=== PATIENT | male | born 1935 | race Caucasian/White ===

== ENCOUNTER → 2020-04-03 14:56 | Outpatient (REF) | payer MEDICARE, SELFPAY | LOC: ANHLAB 14:56 | PROVIDERS: PCP Internal Medicine; Visit Provider Nurse Practitioner | DX: C44.319 Basal cell carcinoma of skin of other parts of face (principal) | CPT/HCPCS: 88305 ==

== ENCOUNTER → 2020-04-30 10:35 | Outpatient (REF) | payer MEDICARE, SELFPAY | LOC: ANHLAB 10:35 | PROVIDERS: PCP Internal Medicine; Visit Provider Nurse Practitioner | DX: C44.319 Basal cell carcinoma of skin of other parts of face (principal) | CPT/HCPCS: 88305; 88331 ==

== ENCOUNTER → 2020-06-26 11:34 | Outpatient (REF) | payer MEDICARE, SELFPAY | LOC: ANHLAB 11:34 | PROVIDERS: PCP Internal Medicine; Visit Provider Nurse Practitioner | DX: L85.9 Epidermal thickening, unspecified (principal) | CPT/HCPCS: 88305; 88312; 88313; 88342 ==

== ENCOUNTER → 2021-03-19 07:44 | Outpatient (CLI) | payer MEDICARE, SELFPAY ==
--- NOTE | ~2021-03-19 | XR_ITS ---
EXAMINATION: XR lumbar spine 2-3V DATE: 03/19/2021 08:20 INDICATION: Low back pain TECHNIQUE: Anteroposterior and lateral views of the lumbar spine, and cone-down lateral view of the l umbosacral junction were obtained. COMPARISON: 02/23/2015 FINDINGS: There are 3 mm of anterolisthesis of L3 on L4 and 6 mm of anterolisthesis of L4 on L5. Ther e is severe loss of intervertebral disc space height at L5-S1. The vertebral body heights are normal. No fracture is identified. 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 IMPRESSION: 1. Moderate to severe lumbar spondylosis without acute findings or significant interval change. Reviewed, dictated and finalized at location A.
== END ==
PROVIDERS: PCP Internal Medicine; Visit Provider Internal Medicine
DX: G89.29 Other chronic pain (principal); M54.5 Low back pain; M47.816 Spondylosis without myelopathy or radiculopathy, lumbar region
CPT/HCPCS: 72100

== ENCOUNTER → 2021-07-09 09:42 | Outpatient (CLI) | payer MEDICARE, SELFPAY ==
--- NOTE | ~2021-07-09 | XR_ITS ---
EXAMINATION: XR chest 2V EXAM DATE: 07/09/2021 10:10 INDICATION: R06.02 - Shortness of breath . Symptoms one month. TECHNIQUE: Portable AP frontal chest x-ray was obtained. Comparison is made to prior examination from 05/29/2011. FINDINGS: Moderately abnormal reticulation throughout the lungs, much more pronounced than on previou s examination. There is cardiomegaly, unchanged. Suspect that there is most likely a chronic componen t of interstitial lung disease. Can't exclude pulmonary edema. No confluent consolidation, pneumothor ax or pleural effusion suspected. There are bony degenerative changes. IMPRESSION: 1. Diffuse abnormal reticulation, likely some amount of chronic interstitial lung disease. Superimpo sed edema not excludable. 2. Cardiomegaly. Reviewed, dictated and finalized at location A. ATION TENDER HELPER IMPRESSION: 1. Diffuse abnormal reticulation, likely some amount of chronic interstitial l mingo disease. Superimposed edema not excludable. 2. Cardiomegaly.
== END ==
PROVIDERS: PCP Internal Medicine; Visit Provider Internal Medicine
DX: R06.02 Shortness of breath (principal); I51.7 Cardiomegaly
CPT/HCPCS: 71046

== ENCOUNTER 2022-06-24 07:00 | Outpatient (NON) | payer MEDICARE, SELFPAY | END 2022-06-24 07:01 | disposition home or self-care (01) | PROVIDERS: PCP Internal Medicine; Visit Provider Nurse Practitioner | DX: C44.319 Basal cell carcinoma of skin of other parts of face (principal); L57.0 Actinic keratosis | CPT/HCPCS: 88305 ==

== ENCOUNTER 2022-08-25 13:32 | Outpatient (NON) | payer MEDICARE, SELFPAY | END 2022-08-25 13:33 | disposition home or self-care (01) | LOC: ANHLAB 13:33 | PROVIDERS: PCP Internal Medicine; Visit Provider Nurse Practitioner | DX: C44.319 Basal cell carcinoma of skin of other parts of face (principal) | CPT/HCPCS: 88305; 88331 ==

== ENCOUNTER 2022-08-28 09:44 | Observation (INO) | payer MEDICARE, SELFPAY ==
[2022-08-28] VITALS (27 sets, daily range): BP systolic 131–180; BP diastolic 80–161; PULSE 70–94; RESP 15–26; TEMP 36.3–36.7; O2SAT 92–100
--- NOTE | ~2022-08-28 | US_ITS ---
EXAMINATION: US carotid duplex BI DATE: 08/28/2022 17:02 INDICATION: Transient ischemic episode TECHNIQUE: Grayscale, color Doppler, and pulsed Doppler images of the cervical carotid arteries were obtained. The degree of vessel stenosis is placed in one of the following categories: normal, <50%, 5 0-69%, >=70% but less than near-occlusion, near-occlusion, or total occlusion. Note that percent sten osis relative to normal distal artery lumen diameter is indirectly measured from velocity measurement s as described by Kennedy, et al. Radiology 2003; 229:340-346. COMPARISON: None. FINDINGS: RIGHT: The right common carotid artery (CCA) peak systolic velocity (PSV) is 49 cm/s. The right internal car otid artery (ICA) PSV is 37 cm/s. The right ICA end-diastolic velocity (EDV) is 15 cm/s. The right IC A/CCA PSV ratio is 0.7. Grayscale and color Doppler images yield an estimate of <50% diameter reducti on from plaque in the ICA. The external carotid artery (ECA) PSV is 44 cm/s. There is antegrade flow in the right vertebral artery. LEFT: The left CCA PSV is 41 cm/s. The left ICA PSV is 32 cm/s. The left ICA EDV is 13 cm/s. The left ICA/C CA PSV ratio is 0.8. Grayscale and color Doppler images yield an estimate of <50% diameter reduction from plaque in the ICA. The ECA PSV is 18 cm/s. There is antegrade flow in the left vertebral artery. IMPRESSION: 1. <50% stenosis in the right internal carotid artery. 2. <50% stenosis in the left internal carotid artery. Reviewed, dictated and finalized at location A. ERY SHOPPER
--- NOTE | ~2022-08-28 | MR_ITS ---
EXAMINATION: MR brain/brain stem wo/w con DATE: 08/28/2022 15:41 INDICATION: Transient ischemic episode with slurred speech TECHNIQUE: Magnetic resonance imaging (MRI) of the brain and brainstem was performed without and with 19 mL Multihance intravenous contrast. Sequences included sagittal and axial T1-weighted SE, axial d iffusion-weighted FS SE, axial T2*-weighted GRE, axial 3D SWAN, axial T2-weighted FLAIR, and axial T2 -weighted FSE. Postcontrast axial and coronal T1-weighted SE was obtained. Apparent diffusion coeffic ient (ADC) maps were created. COMPARISON: Head CT dated 08/28/2022 FINDINGS: There are no areas of restricted diffusion to suggest acute infarction. No intracranial hemorrhage or abnormal intracranial mass lesion. There are a few scattered areas of nonspecific increased T2-weigh cayla signal intensity in the cerebral and pontine white matter which is within normal limits for age. There are no intraparenchymal signal abnormalities seen on the other pulse sequences. Symmetric promi nence of the sulci consistent with mild age-appropriate diffuse cerebral volume loss. The ventricles are symmetric and normal in size. 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 There are n o other abnormal extra-axial fluid collections. Flow voids are seen in the cerebral arteries on the T 2-weighted sequences consistent with their expected patency. Visualized orbits and soft tissues are u nremarkable. There are no areas of abnormal enhancement on the post contrast images. No mucosal thick ening in the bilateral ethmoid sinuses. IMPRESSION: 1. Normal aging brain. No acute intracranial process. Reviewed, dictated and finalized at location A. CS INSTRUCTOR
--- NOTE | ~2022-08-28 | CT_ITS ---
EXAMINATION: CT brain wo con DATE: 08/28/2022 09:53 INDICATION: Stroke. Transient ischemic episode. TECHNIQUE: Computed tomography (CT) of the head was performed without intravenous contrast. Sagittal and coronal reconstructions were performed. The mA was adjusted according to patient size. Iterative reconstruction technique was employed. The dose-length product was 605.33 mGy-cm. COMPARISON: None FINDINGS: No acute intracranial hemorrhage or acute infarction. Incidental small posterior fossa arachnoid cyst exerting mild mass effect upon the medial side of the right cerebellar hemisphere. No other abnormal extra-axial fluid collections. There is mild scattered white matter hypoattenuation consistent with chronic small vessel ischemic disease. Symmetric prominence of the sulci and ventricles consistent wi th mild to moderate age-appropriate diffuse cerebral volume loss. Ventricles are normal and symmetric . No mass/mass effect. Changes of bilateral intraocular lens replacement. The orbits, paranasal sinus es and mastoid air cells are normal. Intracranial calcified cerebral atherosclerosis is noted. IMPRESSION: 1. Normal aging brain. No acute intracranial process. Reviewed, dictated and finalized at location A. SION OPERATOR
--- NOTE | 2022-08-28 09:50 | ECG_ITS ---
Measurements Intervals [place] Rate: 84 P: 53 CT: 254 QRS: -86 QRSD: 142 T: -22 QT: 389 QTc: 461 Interpretive Statements SINUS RHYTHM WITH FIRST DEGREE AV BLOCK RIGHT BUNDLE BRANCH BLOCK LEFT ANTERIOR FASCICULAR BLOCK BASELINE ARTIFACT- I, II, AVR ABNORMAL ECG NO PREVIOUS ECG AVAILABLE FOR COMPARISON Electronically Signed On 08-28-2022 12:51:40 KETTLE SKIMMER by Simeon Carter D.O.
--- NOTE | 2022-08-28 09:56 | ED.GENADULT ---
HPI - General Adult General Chief complaint: Neuro Symptoms/Deficit Stated complaint: trouble speaking x 1 min Time Seen by Provider: 08/28/22 09:48 History of Present Illness HPI narrative: 87-year-old male presenting to the emergency department for evaluation of difficulty speaking and word finding difficulty for approximately 1 minute. This occurred approximately 30 minutes prior to arrival. When patient woke up this morning he states he was at his baseline but this episode started approximately 30 minutes ago and has since resolved. Patient denies any difficulty with word finding at this point. Patient denies any associated numbness or weakness. Patient states he has had intermittent headache over the course of the last month. Patient does have a history of high cholesterol, type 2 diabetes, basal cell carcinoma. Patient denies any prior history of VA or CVA. Related Data Home Medications Medication Instructions Recorded Confirmed cholecalciferol (vitamin D3) 50 50 mcg PO DAILY 03/05/20 08/28/22 mcg (2,000 unit) capsule acetaminophen 325 mg tablet 325 mg PO Q6H PRN Pain 07/08/21 08/28/22 (Tylenol) losartan 50 mg tablet 25 mg PO DAILY 08/28/22 08/28/22 sertraline 50 mg tablet 50 mg PO DAILY 08/28/22 08/28/22 tramadol 50 mg tablet 25 mg PO Q12H 08/28/22 08/28/22 Allergies Allergy/AdvReac Type Severity Reaction Status Date / Time No Known Allergies Allergy Verified 06/11/22 09:29 Review of Systems Review of Systems: CONSTITUTIONAL: Denies fever, chills, or sweats. EYES: Denies visual changes, redness, or discharge. ENT: Denies rhinorrhea, congestion, sore throat, or otalgia. CARDIOVASCULAR: Denies chest pain, palpitations, or edema. RESPIRATORY: Denies cough or dyspnea. GASTROINTESTINAL: Denies abdominal pain, nausea, vomiting, or diarrhea. GENITOURINARY: Denies dysuria or hematuria. SKIN: Denies rash or itching. MUSCULOSKELETAL: Denies back pain, joint pain, or myalgia. NEUROLOGIC: See HPI [facility] Past Medical History Medical History (Updated 08/28/22 @ 14:14 by Melvina Vincent PA-C) Actinic keratosis Anxiety Basal cell carcinoma Essential (primary) hypertension Gastroesophageal reflux disease Mixed hyperlipidemia Stage 4 chronic kidney disease Type 2 diabetes mellitus Surgical History Surgical History (Updated 08/28/22 @ 13:45 by Melvina Vincent PA-C) History of basal cell carcinoma excision History of laparoscopic cholecystectomy (03/05/00) History of lumbar laminectomy for spinal cord decompression Family History Family History Father Family history of pancreatic cancer Sibling Family history of diabetes mellitus in first degree relative Family history of pancreatic cancer Social History Social History (Updated 08/28/22 @ 13:58 by Melvina Vincent PA-C) Social History: Surrogate medical decision maker: Naheed Green, spouse. Code status: Full code. Smoking status: Never smoker Second hand tobacco smoke exposure: No Alcohol intake: never Substance use: never Substance use type: does not use Lack of Transportation: No Lack of Food: Never True Current Housing: I Have Housing Concerned About Future Housing: No Difficulty Paying Gas/Electric Bills: No Difficulty Paying for Meds: No Currently Unemployed: No Education: Don't Know Difficulty w/ Childcare or Family Care: No Spiritual care concerns: No Exam Narrative: APPEARANCE: Well appearing, no pain, no distress, well-nourished. HEAD: normocephalic, atraumatic. EYES: PERRLA/EOMI, conjunctivae clear. Normal visual wallace NOSE: Normal no drainage THROAT: Pharynx clear, no exudate. NECK: Supple. No adenopathy, no masses. RESPIRATORY: Airway patent, respirations nonlabored. Clear to auscultation bilaterally, no rales, rhonchi, wheezing. CARDIOVASCULAR: Regular rate and rhythm without murmurs rubs or gallops. ABDOMINAL: Soft, nont
[2022-08-28 10:08] LABS: Glucose Point of Care 140 mg/dl (65-105)
[2022-08-28 10:19] LABS: Basophils Absolute Auto 0.1 K/mm3 (0.0-0.1); Basophils Percent Auto 0.8 % (0.2-1.2); Eosinophils Absolute Auto 1.2 K/mm3 (0-0.3); Eosinophils Percent Auto 13.8 % (0-4.4); Hematocrit 45.1 % (42.0-52.0); Hemoglobin 13.8 g/dL (14.0-18.0); Immature Granulocyte Absolute 0.02 K/mm3 (0.00-0.031); Immature Granulocyte Percent A 0.2 % (0-0.5); Immature Platelet Fraction Pct 5.7 % (0.9-11.2); Lymphocytes Absolute Auto 3.41 K/mm3 (0.9-3.2); Lymphocytes Percent Auto 40.4 % (18.3-44.2); Mean Corpuscular HGB Conc 30.6 g/dl (32-36); Mean Corpuscular Hemoglobin 31.2 pg (26-34); Mean Corpuscular Volume 101.8 fl (80-100); Mean Platelet Volume 11.1 fl (7.4-10.4); Monocytes Absolute Auto 0.8 K/mm3 (0.1-0.6); Monocytes Percent Auto 9.7 % (2.6-8.5); Neutrophils Percent Auto 35.1 % (45.5-73.1); Platelet Count Result 143 k/mm3 (150-375); Red Blood Count 4.43 M/mm3 (4.6-6.20); Red Cell Distribution Width 13.9 % (11.5-14.5); White Blood Count 8.5 K/mm3 (4.5-10.0)
[2022-08-28 10:30] LABS: Alanine Aminotransferase 23 U/L (6-50); Albumin Level 4.6 g/dL (3.5-5.1); Alkaline Phosphatase 81 U/L (38-126); Anion Gap 9 mmol/L (8-16); Aspartate Amino Transferase 29 U/L (17-59); Bilirubin,Total 0.5 mg/dL (0.2-1.3); Blood Urea Nitrogen 41 mg/dL (9-20); Calcium 8.7 mg/dL (8.4-10.2); Carbon Dioxide 25 mmol/L (22-30); Chloride 104 mmol/L (98-107); Estimated CRCL calculation 24 ml/min; Estimated Glomerular Filt Rate 26; Glucose 136 mg/dL (65-110); Potassium 4.1 mmol/L (3.4-5.0); Sodium 138 mmol/L (137-145)
[2022-08-28 10:32] LABS: INR 0.9; Prothrombin Time 12.2 Seconds (11.1-14.7)
[2022-08-28 10:33] LABS: Partial Thromboplastin Time 28.2 SECONDS (22.3-36.8)
[2022-08-28 10:57] LABS: Appearance Urine Clear (Clear); Bilirubin Urine Negative (Negative); Blood Urine 1+ (Negative); Glucose Urine UA Trace mg/dL (Negative); Ketones Urine Negative (Negative); Leukocyte Esterase Ur Negative LEU/UL (Negative); Nitrate Urine Negative (Negative); Protein Urine 3+ mg/dL (Negative); Urobilinogen Urine 0.2 mg/dL (<2.0); pH Urine 6.5 (5.0-9.0)
[2022-08-28 10:57] LABS: Influenza A QL RT-PCR Negative (Negative); Influenza B QL RT-PCR Negative (Negative); RSV RNA, RT-PCR Negative (Negative); SARS-CoV-2 RNA PCR Negative
[2022-08-28 11:00] LABS: Add Urine Microscopic? YES; Color Urine Light Yellow (Yellow)
[2022-08-28 11:02] LABS: Mucus Urine Rare /lpf; RBC Urine 0-2 /hpf (0-2); Squamous Epithelial Cell Urine Rare /hpf (Few); WBC Urine 0-3 /hpf
[2022-08-28] MEDS: ASPIRIN 81 MG CHEWABLE TABLET 324 MG PO (11:18)
--- NOTE | 2022-08-28 14:11 | ECHO_ITS ---
Patient Info Name: Denilson Green Age: 87 years : 1935 Gender: Male Ht: 70 in Wt: 209 lbs BSA: 2.19 m2 HR: 66 bpm BP: 162 / 104 mmHg Technical Quality: Fair Exam Date: 08/28/2022 2:32 PM Exam Location: [facility] Pulmonary Exam Room: 257 Patient Status: Inpatient Admit Date: 08/28/2022 Staff Ordering Physician: Melvina Vincent PA-C Bed Placement Coordinator: Cynthia Davenport RCS Attending Provider: Jerome Beltran MD Referring Physician: Melisa GRAHAM; Exam Type: CA echo doppler color flow Study Info Indications - stroke symptoms htn Complete two-dimensional, color flow and Doppler transthoracic echocardiogram is performed. Summary 1. Complete two-dimensional, color flow and Doppler transthoracic echocardiogram is performed. 2. Left ventricular chamber dimension is normal. 3. Left ventricular systolic function is normal, estimated at 60-65%. 4. Ventricular septum is sigmoid shaped. No LVOT obstruction. 5. There is moderately increased left ventricular wall thickness. 6. The left ventricular diastolic function is abnormal. 7. E/e' 25 is elevated. 8. No pulmonary hypertension, estimated pulmonary arterial systolic pressure is 17 mmHg. Left Ventricle E/e' 25 is elevated. Ventricular septum is sigmoid shaped. No LVOT obstruction. Left ventricular chamber dimension is normal. Left ventricular systolic function is normal, estimated at 60-65%. There is moderately increased left ventricular wall thickness. The left ventricular diastolic function is abnormal. Right Ventricle Right ventricular chamber dimension is normal. Right ventricular systolic function is normal. Left Atria Left atrial chamber dimension is normal. Right Atria Right atrial chamber dimension is normal. Aortic Valve The aortic valve is trileaflet. There is no aortic valve stenosis. There is no aortic valve regurgitation. Pulmonic Valve There is no pulmonic regurgitation. Mitral Valve There is no mitral valve stenosis. There is no mitral valve regurgitation. Tricuspid Valve There is no tricuspid valve regurgitation. No pulmonary hypertension, estimated pulmonary arterial systolic pressure is 17 mmHg. Pericardium/Pleural There is no pericardial effusion. Inferior Vena Cava Normal inferior vena cava with >50% collapse upon inspiration consistent with normal right atrial pressure, 5 mmHg. Aorta The aortic root size at the sinus of Valsalva is normal. Left Ventricular Outflow Tract Name Value Normal LVOT 2D LVOT Diameter 2.1 cm LVOT Doppler LVOT Peak Gradient 4 mmHg LVOT Mean Gradient 2 mmHg LVOT VTI 20 cm LVOT VTI/AV VTI Ratio 0.9 LVOT Stroke Volume 72 ml LVOT CO 15.6 l/min LVOT CI 7.1 l/min/m2 Pulmonic Valve Name Value Normal
--- NOTE | 2022-08-28 14:46 | ADMGEN ---
This patient, Denilson Green, was admitted to 2 Medical Room 257-01. Patient/family oriented to hospital policies and general routines including ID bracelet, bed and alarms, visiting hours, pain management, procedures, bathroom and other care routines, personal items, smoking policy, room service/diet, and visiting hours. Information on how to activate the Rapid Response Team has been discussed. Patient are encouraged to report perceived risks to care and to ask questions if they do not understand what they are told or what they should do.
[2022-08-28 17:18] LABS: Glucose Point of Care 96 mg/dl (65-105)
[2022-08-28] MEDS: ACETAMINOPHEN 325 MG TABLET 650 MG PO (18:37)
--- NOTE | 2022-08-28 19:00 | PM.IMHP ---
H&P: HPI History of Present Illness Date/Time: 08/28/22 19:00 Chief Complaint: Difficulty speaking. Narrative: This a pleasant 87-year-old male with hypertension, hyperlipidemia, type 2 diabetes mellitus who presented to the emergency department from home for evaluation of difficulty speaking. He was in his usual state of health when he woke up this morning and about 30 minutes prior to arrival he suddenly had difficulties getting out the words that he wanted to say. He was able to utter some noises but not form words. He also felt a bit confused at that time. The symptoms resolved within approximately 15 minutes and have not returned. There were no other associated symptoms and he specifically denies vertigo, auditory and visual changes, focal weakness, paresthesias, facial droop, and difficulty swallowing. He has no history of TIA, CVA, myasthenia gravis, atrial fibrillation, or carotid disease. At the time my evaluation he feels just fine his only complaint is that of some back discomfort from lying in bed today. Review of Systems Review of Systems: Twelve systems were reviewed and are negative except for as per HPI. [facility] Past Medical History Medical History (Updated 08/28/22 @ 14:14 by Melvina Vincent PA-C) Actinic keratosis Anxiety Basal cell carcinoma Essential (primary) hypertension Gastroesophageal reflux disease Mixed hyperlipidemia Stage 4 chronic kidney disease Type 2 diabetes mellitus Surgical History Surgical History (Updated 08/28/22 @ 13:45 by Melvina Vincent PA-C) History of basal cell carcinoma excision History of laparoscopic cholecystectomy (03/05/00) History of lumbar laminectomy for spinal cord decompression Family History Family History Father Family history of pancreatic cancer Sibling Family history of diabetes mellitus in first degree relative Family history of pancreatic cancer Social History Social History (Updated 08/28/22 @ 13:58 by Melvina Vincent PA-C) Social History: Surrogate medical decision maker: Naheed Janromy, spouse. Code status: Full code. Smoking status: Never smoker Second hand tobacco smoke exposure: No Alcohol intake: never Substance use: never Substance use type: does not use Lack of Transportation: No Lack of Food: Never True Current Housing: I Have Housing Concerned About Future Housing: No Difficulty Paying Gas/Electric Bills: No Difficulty Paying for Meds: No Currently Unemployed: No Education: Don't Know Difficulty w/ Childcare or Family Care: No Spiritual care concerns: No Meds Home Medications and Allergies Home Medications Medication Instructions Recorded Confirmed Type cholecalciferol (vitamin D3) 50 50 mcg PO DAILY 03/05/20 08/28/22 History mcg (2,000 unit) capsule lancets (Lancets, Super Thin) #100 ea 05/02/20 08/28/22 Rx acetaminophen 325 mg tablet 325 mg PO Q6H PRN Pain 07/08/21 08/28/22 History (Tylenol) blood sugar diagnostic (OneTouch #100 ea 11/06/21 08/28/22 Rx Verio test strips) glipizide 10 mg tablet 10 mg PO DAILY #90 tabs 02/28/22 08/28/22 Rx atorvastatin 40 mg tablet See Rx Instructions .Route 04/07/22 08/28/22 Rx .COMPLEX #90 tabs pioglitazone 30 mg tablet 30 mg PO DAILY #90 tabs 08/14/22 08/28/22 Rx losartan 50 mg tablet 25 mg PO DAILY 08/28/22 08/28/22 History sertraline 50 mg tablet 50 mg PO DAILY 08/28/22 08/28/22 History tramadol 50 mg tablet 25 mg PO Q12H 08/28/22 08/28/22 History Allergies Allergy/AdvReac Type Severity Reaction Status Date / Time No Known Allergies Allergy Verified 06/11/22 09:29 Vital Signs Vital Signs - 24 hr 08/28/22 09:54 08/28/22 10:08 08/28/22 10:15 Temperature 98.1 F Pulse Rate 87 80 80 Respiratory Rate 16 20 21 H Blood Pressure 152/116 H Pulse Oximetry 96 99 Oxygen Delivery Room Air 08/28/22 10:16 08/28/22 10:30 08/28/22 10:31 Temperature Pulse Ra
[2022-08-28 20:30] LABS: Glucose Point of Care 188 mg/dl (65-105)
[2022-08-28] MEDS: traMADol HCL (*CRX) 25 MG TABLET PO (23:54)
[2022-08-29 04:00] VITALS: PULSE 57
[2022-08-29 04:57] LABS: Hematocrit 42.2 % (42.0-52.0); Hemoglobin 13.2 g/dL (14.0-18.0); Immature Platelet Fraction Pct 5.6 % (0.9-11.2); Mean Corpuscular HGB Conc 31.3 g/dl (32-36); Mean Corpuscular Hemoglobin 31.9 pg (26-34); Mean Corpuscular Volume 101.9 fl (80-100); Mean Platelet Volume 11.2 fl (7.4-10.4); Platelet Count Result 142 k/mm3 (150-375); Red Blood Count 4.14 M/mm3 (4.6-6.20); White Blood Count 8.3 K/mm3 (4.5-10.0)
[2022-08-29 05:11] VITALS: BP 137/98; PULSE 58; RESP 18; TEMP 36.9; O2SAT 100
[2022-08-29 05:24] LABS: Anion Gap 4 mmol/L (8-16); Blood Urea Nitrogen 38 mg/dL (9-20); Calcium 8.8 mg/dL (8.4-10.2); Carbon Dioxide 30 mmol/L (22-30); Chloride 103 mmol/L (98-107); Estimated CRCL calculation 22 ml/min; Estimated Glomerular Filt Rate 24; Glucose 118 mg/dL (65-110); Potassium 4.4 mmol/L (3.4-5.0); Sodium 137 mmol/L (137-145)
[2022-08-29 08:00] VITALS: PULSE 58
[2022-08-29 08:12] LABS: Glucose Point of Care 138 mg/dl (65-105)
[2022-08-29] MEDS: PIOGLITAZONE HCL 30 MG TABLET PO (08:46)
[2022-08-29] MEDS: CHOLECALCIFEROL 1,000 UNITS TABLET 2000 UNITS PO (08:46)
[2022-08-29] MEDS: glipiZIDE 5 MG TABLET 10 MG PO (08:46)
[2022-08-29] MEDS: LOSARTAN POTASSIUM 25 MG TABLET PO (08:46)
[2022-08-29] MEDS: SERTRALINE HCL 50 MG TABLET PO (08:46)
[2022-08-29] MEDS: ATORVASTATIN 40 MG TABLET BY MOUTH (08:47)
[2022-08-29] MEDS: traMADol HCL (*CRX) 25 MG TABLET PO (08:53)
[2022-08-29] MEDS: SODIUM CHLORIDE 0.9% IV 1,000 ML 100 ML IV CONT (09:01)
[2022-08-29] MEDS: ASPIRIN 81 MG CHEWABLE TABLET PO (09:10)
[2022-08-29] MEDS: SODIUM CHLORIDE 0.9% IV 500 ML 999 ML IV CONT (09:10)
--- NOTE | 2022-08-29 09:15 | PM.DS ---
DS: Admitting Diagnosis Discharge Date 08/29/22 0915 Admitting Diagnosis TIA DS: Discharge Diagnosis Discharge Diagnosis (1) Difficulty speaking: Code(s): R47.9 - Unspecified speech disturbances Status: Acute Assessment and Plan: He had difficulty speaking for approximately 15 minutes this morning without associated symptoms. This is never happened before. Concerns are for TIA. CVA possible but less likely given brevity of symptoms. MG unlikely given lack of other bulbar symptoms. Received aspirin 324 mg in the ED, continue 81 mg daily. Continue atorvastatin 40 mg daily, consider dose increase depending on workup. Monitor on telemetry overnight to rule out cardiac dysrhythmia. Brain MRI, carotid Doppler ultrasound, echocardiogram pending. Continue neurologic checks q.4 hours. Neurology consulted. (2) Essential (primary) hypertension: Code(s): I10 - Essential (primary) hypertension Status: Acute Assessment and Plan: Blood pressures were reviewed and they have been consistently running anywhere between 139 to 180 systolic. Patient reports that his blood pressures are typically well controlled. Allow permissive hypertension for now. Continue losartan 50 mg daily. (3) Mixed hyperlipidemia: Code(s): E78.2 - Mixed hyperlipidemia Status: Acute Assessment and Plan: LFTs within normal limits. Continue atorvastatin 40 mg daily. (4) Type 2 diabetes mellitus: Code(s): E11.9 - Type 2 diabetes mellitus without complications Status: Acute Assessment and Plan: Random glucose today was 140; hemoglobin A1c was 7.8% in May 2024. Continue glipizide and pioglitazone. Initiate sliding scale insulin, Accu-Cheks, and hypoglycemic protocol. (5) Stage 4 chronic kidney disease: Code(s): N18.4 - Chronic kidney disease, stage 4 (severe) Status: Acute Assessment and Plan: Stable on review of previous labs (baseline creatinine appears to range between 2.0 and 2.3). Followed by Dr. Johansen. DS: Summary Hospital Course Hospital Course: Patient is an 87-year-old male with a past medical history of hypertension, hyperlipidemia, type 2 diabetes, who presented the emergency department from home for evaluation of difficulty speaking. Patient stated that he was in his usual health when he woke up this morning however started experiencing symptoms of difficulty speaking and was only able to utter some noises. Symptoms lasted about 15 minutes. He denied any other issues including chest pain, shortness a breath, nausea, vomiting, diarrhea, constipation weakness or fatigue neurology was consulted. Patient CT of the head was negative for any acute findings. Brain MRI was also negative for any acute findings. Carotid Dopplers showed less than 50% stenosis bilaterally. Echo was also performed and showed EF of 60-65%, with an abnormal diastolic dysfunction. BP was noted to be elevated upon arrival and continues to be slightly elevated at 137/98. Increased losartan to 50mg. Lipid panel was performed. Aspirin, atorvastatin, continued. Will add Plavix for 4 weeks. Neurology was consulted and patient will need to follow up in 3-4 months. Currently patient is stable. Patient currently denies any chest pain, shortness of breath, nausea, vomiting, diarrhea, constipation, weakness or fatigue. Status at Discharge Functional status at discharge: independent ambulation Overall status at discharge: patient is progressing back to baseline Time Spent with Patient Time attestation: Total time spent providing and/or coordinating discharge services:38 minutes Time spent: Greater than 30 minutes Specific discharge activities: Diagnostic testing, chart review, developing a treatment plan, education, care coordination documentation, physical exam, result review Exam Narrative: General: well-nourished, well-appearing 87-year-old female, sitting up in bed, comfor
[2022-08-29 09:25] LABS: Cholesterol 141 mg/dL (0-200); HDL Direct 47 mg/dL; Triglycerides 169 mg/dL (<150)
[2022-08-29 09:37] LABS: LDL Cholesterol Direct 41 mg/dL
[2022-08-29 11:51] LABS: Glucose Point of Care 199 mg/dl (65-105)
[2022-08-29 12:00] VITALS: PULSE 97
--- NOTE | 2022-08-29 13:17 | WPDNEURCNPN ---
Assessment and Plan Assessment and plan (1) Stage 4 chronic kidney disease: Code(s): N18.4 - Chronic kidney disease, stage 4 (severe) Status: Acute (2) Type 2 diabetes mellitus: Code(s): E11.9 - Type 2 diabetes mellitus without complications Status: Acute (3) Brain TIA: Code(s): G45.9 - Transient cerebral ischemic attack, unspecified Status: Acute Plan 1 TIA continued on aspirin with initial loading dosage also continue on atorvastatin brain MRI and echocardiogram are not significant, 2 patient can be discharged with diagnosis of TIA on aspirin and cholesterol-lowering medication along with the diabetic treatment Consult date: 08/29/22 HPI: Denilson Green is a 87 year old male Admitted to the hospital through the emergency room for the complaints of difficulty in speaking and word-finding difficulties lasting only for 1 minutes and occurring about 30 minutes prior to arrival to the emergency room he gave no history of associated difficulties such as numbness or weakness of 1 side or other side. Patient has been taking losartan 25 mg daily in addition to sertraline 50 mg daily, has ongoing history of hypertension ,hyperlipidemia, chronic renal disease stage IV and type 2 diabetes mellitus, is never a smoker never alcohol intake initial examination in the emergency room was nonfocal initial CT scan of the head was negative for the bleed or any territorial stroke vital signs were stable except the blood pressure of 178/102 initial CBC was normal and routine labs were with BUN of 41 creatinine of 2.40 screening for influenza AB and RSV and starts were negative EKG was without atrial fibrillation and stroke scale of 1 MRI has been done which is normal carotid studies are with less than 50% stenosis bilaterally, though cardiogram is normal [facility] Past Medical History Medical History (Updated 08/28/22 @ 14:14 by Melvina Vincent PA-C) Actinic keratosis Anxiety Basal cell carcinoma Essential (primary) hypertension Gastroesophageal reflux disease Mixed hyperlipidemia Stage 4 chronic kidney disease Type 2 diabetes mellitus Surgical History Surgical History (Updated 08/28/22 @ 13:45 by Melvina Vincent PA-C) History of basal cell carcinoma excision History of laparoscopic cholecystectomy (03/05/00) History of lumbar laminectomy for spinal cord decompression Family History Family History Father Family history of pancreatic cancer Sibling Family history of diabetes mellitus in first degree relative Family history of pancreatic cancer Social History Social History (Updated 08/28/22 @ 13:58 by Melvina Vincent PA-C) Social History: Surrogate medical decision maker: Naheed Green, spouse. Code status: Full code. Smoking status: Never smoker Second hand tobacco smoke exposure: No Alcohol intake: never Substance use: never Substance use type: does not use Lack of Transportation: No Lack of Food: Never True Current Housing: I Have Housing Concerned About Future Housing: No Difficulty Paying Gas/Electric Bills: No Difficulty Paying for Meds: No Currently Unemployed: No Education: Don't Know Difficulty w/ Childcare or Family Care: No Spiritual care concerns: No Meds Home Medications and Allergies Home Medications Medication Instructions Recorded Confirmed Type cholecalciferol (vitamin D3) 50 50 mcg PO DAILY 03/05/20 08/28/22 History mcg (2,000 unit) capsule lancets (Lancets, Super Thin) #100 ea 05/02/20 08/28/22 Rx acetaminophen 325 mg tablet 325 mg PO Q6H PRN Pain 07/08/21 08/28/22 History (Tylenol) blood sugar diagnostic (OneTouch #100 ea 11/06/21 08/28/22 Rx Verio test strips) glipizide 10 mg tablet 10 mg PO DAILY #90 tabs 02/28/22 08/28/22 Rx atorvastatin 40 mg tablet See Rx Instructions .Route 04/07/22 08/28/22 Rx .COMPLEX #90 tabs pioglitazone 30 mg tablet 30 mg PO FLORENTINO
== END 2022-08-29 13:55 | disposition home or self-care (01) ==
LOC: ANHED 11:22 → ANH2MED 14:10
PROVIDERS: Physician Assistant; Admitting Provider Internal Medicine; Emergency Provider Emergency Medicine; PCP Internal Medicine Nephrology; Visit Provider Nurse Practitioner
DX: R47.9 Unspecified speech disturbances (principal); R51.9 Headache, unspecified; F41.9 Anxiety disorder, unspecified; I12.9 Hypertensive chronic kidney disease with stage 1 through stage 4 chronic kidney disease, or unspecified chronic kidney disease; E11.22 Type 2 diabetes mellitus with diabetic chronic kidney disease; N18.4 Chronic kidney disease, stage 4 (severe); G45.9 Transient cerebral ischemic attack, unspecified; I45.2 Bifascicular block; R94.31 Abnormal electrocardiogram [ECG] [EKG]; K21.9 Gastro-esophageal reflux disease without esophagitis; E78.2 Mixed hyperlipidemia; Z79.1 Long term (current) use of non-steroidal anti-inflammatories (NSAID); Z87.891 Personal history of nicotine dependence; Z79.899 Other long term (current) drug therapy
CPT/HCPCS: 36415; 70450; 70553; 80048; 80053; 80061; 81001; 82948; 83735; 84443; 85025; 85027; 85055; 85610; 85730; 87637; 92523; 92610; 93005; 93306; 93880; 99285; A9270; A9577; G0378; J7030; J7040

== ENCOUNTER 2022-09-06 06:43 | Emergency (ER) | payer MEDICARE, SELFPAY ==
[2022-09-06] VITALS (17 sets, daily range): BP systolic 149–158; BP diastolic 90–97; PULSE 78–96; RESP 16–23; TEMP 36.7; O2SAT 90–99
[2022-09-06 09:12] LABS: Mucus Urine Rare /lpf; RBC Urine 0-2 /hpf (0-2); WBC Urine 0-3 /hpf
[2022-09-06 09:17] LABS: Appearance Urine Clear (Clear); Bilirubin Urine Negative (Negative); Blood Urine 1+ (Negative); Color Urine Yellow (Yellow); Glucose Urine UA 2+ mg/dL (Negative); Ketones Urine Negative (Negative); Leukocyte Esterase Ur Negative LEU/UL (Negative); Nitrate Urine Negative (Negative); Protein Urine 3+ mg/dL (Negative); Urobilinogen Urine 0.2 mg/dL (<2.0); pH Urine 6.5 (5.0-9.0)
[2022-09-06 09:38] LABS: Add Urine Microscopic? YES
[2022-09-06] MEDS: traMADol HCL (*CRX) 50 MG TABLET PO (09:40)
--- NOTE | 2022-09-06 10:21 | ED.BACK ---
HPI - Back Pain/Injury General Chief Complaint: Back Pain/Injury Stated Complaint: lower back pain, unable to get up Time Seen by Provider: 09/06/22 07:31 History of Present Illness HPI Narrative: Patient is an 87-year-old male who presents ER with low back pain. Ongoing over the last week. Reports he put on a back support belt and put it on too tightly and work for too long which caused his pain to worsen. He has been out of tramadol for 2 days and his pain is been worsened with that. No fevers or chills or sweats. No lower extremity numbness or weakness or saddle anesthesia. Denies urinary incontinence. Reports he typically urinates every 2 hours at night but over the last couple days he has been urinating every hour. No dysuria. Denies retention. Related Data Home Medications Medication Instructions Recorded Confirmed cholecalciferol (vitamin D3) 50 50 mcg PO DAILY 03/05/20 08/28/22 mcg (2,000 unit) capsule acetaminophen 325 mg tablet 325 mg PO Q6H PRN Pain 07/08/21 08/28/22 (Tylenol) losartan 50 mg tablet 25 mg PO DAILY 08/28/22 08/28/22 sertraline 50 mg tablet 50 mg PO DAILY 08/28/22 08/28/22 tramadol 50 mg tablet 25 mg PO Q12H 08/28/22 08/28/22 Allergies Allergy/AdvReac Type Severity Reaction Status Date / Time No Known Allergies Allergy Verified 09/02/22 10:54 Review of Systems Constitutional: Constitutional: Denies chills and Denies fever(s) Genitourinary: Genitourinary: Denies oliguria, Denies dysuria and Reports urinary frequency Musculoskeletal: Musculoskeletal: Reports back pain, Denies arthralgias and Denies joint swelling Neurologic: Denies focal weakness and Denies numbness [facility] Past Medical History Medical History Actinic keratosis Anxiety Basal cell carcinoma Essential (primary) hypertension Gastroesophageal reflux disease Mixed hyperlipidemia Stage 4 chronic kidney disease Type 2 diabetes mellitus Surgical History Surgical History History of basal cell carcinoma excision History of laparoscopic cholecystectomy (03/05/00) History of lumbar laminectomy for spinal cord decompression Family History Family History Father Family history of pancreatic cancer Sibling Family history of diabetes mellitus in first degree relative Family history of pancreatic cancer Social History Social History Social History: Surrogate medical decision maker: Naheed Green, spouse. Code status: Full code. Smoking status: Never smoker Second hand tobacco smoke exposure: No Alcohol intake: never Substance use: never Substance use type: does not use Lack of Transportation: No Lack of Food: Never True Current Housing: I Have Housing Concerned About Future Housing: No Difficulty Paying Gas/Electric Bills: No Difficulty Paying for Meds: No Currently Unemployed: No Education: Don't Know Difficulty w/ Childcare or Family Care: No Living arrangements: with family Occupation/Education: retired Spiritual care concerns: No Exam Narrative: GENERAL: Well-appearing, well-nourished, and in no acute distress. HEAD: Normocephalic, atraumatic. CHEST: Clear to auscultation. No respiratory distress. HEART: Regular rate and rhythm. Normal peripheral pulses. ABDOMEN: Soft, nontender, nondistended. Back: No reproducible midline tenderness to T/L-spine. There is mild paraspinal muscular discomfort in the low back without pinpoint spasm. EXTREMITIES: Normal range of motion. No edema. SKIN: Warm, dry, no rash. NEURO: Alert and oriented x3. PSYCH: Normal mood and affect. Course Course Emergency Course: Patient felt to have acute exacerbation of chronic back pain without new fracture or cauda equina given history and exam. Patient reports she is requiring
== END 2022-09-06 11:17 | disposition home or self-care (01) ==
PROVIDERS: Emergency Provider Emergency Medicine; PCP Internal Medicine
DX: S39.012A Strain of muscle, fascia and tendon of lower back, initial encounter (principal); T14.90XA Injury, unspecified, initial encounter; K21.9 Gastro-esophageal reflux disease without esophagitis; E78.2 Mixed hyperlipidemia; E11.22 Type 2 diabetes mellitus with diabetic chronic kidney disease; N18.4 Chronic kidney disease, stage 4 (severe); I12.9 Hypertensive chronic kidney disease with stage 1 through stage 4 chronic kidney disease, or unspecified chronic kidney disease
CPT/HCPCS: 81001; 99283; A9270

== ENCOUNTER 2022-09-09 10:27 | Emergency (ER) | payer MEDICARE, SELFPAY ==
[2022-09-09 10:28] VITALS: BP 148/114; PULSE 96; RESP 18; TEMP 36.3; O2SAT 94
--- NOTE | 2022-09-09 13:31 | ED.BACK ---
HPI - Back Pain/Injury General Chief Complaint: Back Pain/Injury Stated Complaint: lower back pain Time Seen by Provider: 09/09/22 12:06 History of Present Illness HPI Narrative: Patient is an 87-year-old male presenting with lower back pain. Patient states that he suffers from chronic lower back pain but over the last several weeks it has been more severe. States that it starts in his lower back and seems to radiate into his left hip. States that it is a sharp pain that is exacerbated with movement. Denies any recent trauma. No numbness or weakness, saddle anesthesia, bladder or bowel incontinence. No fevers or chills. No systemic symptoms. Patient states that he suffers from chronic lower back pain but lately it has been really affecting his mobility. Related Data Home Medications Medication Instructions Recorded Confirmed cholecalciferol (vitamin D3) 50 50 mcg PO DAILY 03/05/20 08/28/22 mcg (2,000 unit) capsule acetaminophen 325 mg tablet 325 mg PO Q6H PRN Pain 07/08/21 08/28/22 (Tylenol) losartan 50 mg tablet 25 mg PO DAILY 08/28/22 08/28/22 sertraline 50 mg tablet 50 mg PO DAILY 08/28/22 08/28/22 Allergies Allergy/AdvReac Type Severity Reaction Status Date / Time No Known Allergies Allergy Verified 09/02/22 10:54 Review of Systems Review of Systems: All systems reviewed & are unremarkable except as noted in HPI and below PMFSH Past Medical History Medical History Actinic keratosis Anxiety Basal cell carcinoma Essential (primary) hypertension Gastroesophageal reflux disease Mixed hyperlipidemia Stage 4 chronic kidney disease Type 2 diabetes mellitus Surgical History Surgical History History of basal cell carcinoma excision History of laparoscopic cholecystectomy (03/05/00) History of lumbar laminectomy for spinal cord decompression Family History Family History Father Family history of pancreatic cancer Sibling Family history of diabetes mellitus in first degree relative Family history of pancreatic cancer Social History Social History Social History: Surrogate medical decision maker: Naheed Green, spouse. Code status: Full code. Smoking status: Never smoker Second hand tobacco smoke exposure: No Alcohol intake: never Substance use: never Substance use type: does not use Lack of Transportation: No Lack of Food: Never True Current Housing: I Have Housing Concerned About Future Housing: No Difficulty Paying Gas/Electric Bills: No Difficulty Paying for Meds: No Currently Unemployed: No Education: Don't Know Difficulty w/ Childcare or Family Care: No Living arrangements: with family Occupation/Education: retired Spiritual care concerns: No Exam Narrative: GENERAL: Well-appearing, well-nourished, and in no acute distress. HEAD: Normocephalic, atraumatic. EYES: PERRLA and EOMI. ENT: Nares clear, no rhinorrhea or epistaxis. Mucous membranes moist. NECK: Supple. CHEST: Clear to auscultation. No respiratory distress. HEART: Regular rate and rhythm. No murmur heard. Normal peripheral pulses. ABDOMEN: Soft, nontender, nondistended, normal active bowel sounds. BACK: no midline tenderness, mild left sided paraspinal tenderness into left upper buttock EXTREMITIES: Normal range of motion. No edema. SKIN: Warm, dry, no rash. NEURO: No focal deficits. Alert and oriented x3. 5/5 strength in all extremities, no sensory deficits PSYCH: Normal mood and affect. Course Vital Signs Vital signs: Vital Signs Temperature 97.4 F L 09/09/22 10:28 Pulse Rate 96 09/09/22 10:28 Respiratory Rate 18 09/09/22 10:28 Blood Pressure 148/114 H 09/09/22 10:28 Pulse Oximetry 94 09/09/22 10:28 Oxygen Delivery Room Air 09/09/22 10
[2022-09-09] MEDS: DEXAMETHASONE 2 MG TABLET 6 MG PO (13:54)
== END 2022-09-09 13:56 | disposition home or self-care (01) ==
PROVIDERS: Emergency Provider Emergency Medicine; PCP Internal Medicine
DX: M54.16 Radiculopathy, lumbar region (principal); G89.29 Other chronic pain; M54.50 Low back pain, unspecified; E78.5 Hyperlipidemia, unspecified; K21.9 Gastro-esophageal reflux disease without esophagitis; N18.4 Chronic kidney disease, stage 4 (severe); E11.22 Type 2 diabetes mellitus with diabetic chronic kidney disease; I12.9 Hypertensive chronic kidney disease with stage 1 through stage 4 chronic kidney disease, or unspecified chronic kidney disease
CPT/HCPCS: 99283; J8540

== ENCOUNTER 2022-09-12 07:18 | Inpatient (IN) | payer MEDICARE, SELFPAY ==
--- NOTE | ~2022-09-12 | CT_ITS ---
Noncontrast CT scan of the lumbar spine CLINICAL HISTORY: Back pain TECHNIQUE: Axial noncontrast imaging of the lumbar spine was performed. Sagittal and coronal reformat cayla images were constructed. Dose reduction technique was used on this scan by utilizing automated ex posure control and iterative reconstruction technique. FINDINGS: There is mild to moderate compression fracture of the inferior endplate of L3. No other fra cture or dislocation identified. Intervertebral disc spaces are relatively well-preserved. At L1-L2, there is probable mild disc bulge. No definite canal stenosis. Suspected mild to moderate b ilateral neural foraminal narrowing. At L2-L3, there is probable disc bulge and facet arthropathy. No definite eladia canal stenosis. There is probable moderate to advanced bilateral neural foraminal narrowing. At L3-L4, disc bulge and facet arthropathy resulting in probable at least moderate central canal sten osis. There is severe bilateral neural foraminal narrowing. At L4-L5, disc bulge and facet arthropathy are present. There is probable at least mild central canal stenosis. There is severe left neural foraminal narrowing, and moderate right neural foraminal narro wing. At L5-S1, there is disc osteophyte complex and facet arthropathy. No definite eladia canal stenosis. T here is mild bilateral neural foraminal narrowing. Paravertebral soft tissues are unremarkable. IMPRESSION: Mild to moderate compression fracture at the inferior endplate region of L3. Moderate degenerative spondylosis, as detailed above. There is probable central canal stenosis/thecal sac compression L3-L4 and L4-L5, with multilevel neural foraminal narrowing present. Consider MR to better evaluate neural foraminal narrowing and spinal canal stenosis, as clinically indicated. Reviewed, dictated and finalized at [facility]. REBUILDER IMPRESSION: Mild to moderate compression fracture at the inferior endplate region of L3. Moderate degenerative spondylosis, as detailed above. There is probable central canal stenosis/thecal sac compression L3-L4 and L4-L5, with multilevel neural foraminal narrowing present. Consider MR to better evaluate neural foraminal na rrowing and spinal canal stenosis, as clinically indicated.
--- NOTE | ~2022-09-12 | MR_ITS ---
EXAMINATION: MR lumbar spine wo con DATE: 09/12/2022 14:45 INDICATION: Low back pain. TECHNIQUE: Magnetic resonance imaging (MRI) of the lumbar spine was performed without intravenous con trast. COMPARISON: Lumbar spine MRI 04/04/2015, CT 09/12/2022 FINDINGS: There is 10 degrees dextroscoliosis of lumbar spine. There is 3 mm anterolisthesis of L3 on L4 and L4 on L5 and 4 mm retrolisthesis of L5 on S1. There is a compression fracture of inferior end plate of L3 with 2/5 loss of height and edema-like marrow signal intensity. There is mildly decreased disc height at L2-L3 and moderately decreased disc height at L3-L4 and L5-S1 with endplate remodelin g. The distal spinal cord signal intensity is normal. The conus medullaris is at L2. The following di sc levels are specifically discussed: L1-L2: The disc is bulging and has an annular fissure. There is moderate right and mild left facet marco antonio int osteoarthritis. There is mild bilateral neural foraminal stenosis. There is mild central canal st enosis. L2-L3: The disc is bulging and has an annular fissure. There is moderate bilateral facet joint osteoa rthritis. There is moderate bilateral neural foraminal stenosis. There is mild central canal stenosis with posterior decompression. L3-L4: The disc is bulging and has an annular fissure. There is severe bilateral facet joint osteoart hritis. There is moderate bilateral neural foraminal stenosis. There is severe central canal stenosis . L4-L5: The disc is bulging and has an annular fissure. There is severe bilateral facet joint osteoart hritis. There is moderate bilateral neural foraminal stenosis. There is mild central canal stenosis w ith posterior decompression. L5-S1: The disc is bulging with superimposed right subarticular zone extrusion. There is moderate luca ateral facet joint osteoarthritis. There is moderate bilateral neural foraminal stenosis. There is mi ld central canal stenosis. There is moderate stenosis of right lateral recess. IMPRESSION: 1. Acute versus subacute L3 compression fracture. 2. Severe lumbar spondylosis, worsened from 04/07/2015. Reviewed, dictated and finalized at location [facility]. E COORDINATOR
--- NOTE | ~2022-09-12 | XR_ITS ---
EXAMINATION: XR lumbar spine 2-3V DATE: 09/16/2022 12:54 INDICATION: TLSO brace placement. TECHNIQUE: Upright AP and lateral views of the lumbar spine were obtained. COMPARISON: Lumbar spine MR and CT dated 09/12/2022 FINDINGS: A device likely external to the patient projects to the left of the lumbar and lower thoracic spine o n the frontal radiograph. 2 mm anterolisthesis L3 on L4 and 6 mm anterolisthesis L4 on L5. 12 degree lumbar dextrocurvature. Inferior endplate compression fracture of L3 with 40% central vertebral body height loss. Mild left-sided and posterior disc height loss at L2-L3. Mild left-sided disc height los s at L3-L4 with ballooning of the central disc space resulting from the L3 compression fracture. Mode rate to severe disc height loss at L5-S1. 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 Cholecystectomy clips in right upper quadrant. IMPRESSION: 1. L3 inferior endplate compression fracture with 40% central vertebral body height loss. 2. Mild lumbar dextroscoliosis with moderate to severe lower lumbar predominant spondylosis. Reviewed, dictated and finalized at location A. [employer] MANAGEMENT PROFESSIONAL IMPRESSION: 1. L3 inferior endplate compression fracture with 40% central vertebral body he ight loss. 2. Mild lumbar dextroscoliosis with moderate to severe lower lumbar predominant spondylosis.
[2022-09-12 07:25] VITALS: BP 171/101; PULSE 79; RESP 12; TEMP 36.3; O2SAT 94
--- NOTE | 2022-09-12 07:38 | ED.BACK ---
HPI - Back Pain/Injury General Chief Complaint: Back Pain/Injury Stated Complaint: back pain x 2 weeks, here 2 times in er Time Seen by Provider: 09/12/22 07:18 Source: RN notes reviewed History of Present Illness HPI Narrative: Patient presents emergency department from home via EMS for low back pain. Patient states he has a history of chronic low back pain that has been worsening over the past 2 weeks he denies any new trauma or injury states the pain is located in the bilateral lower back and radiates into his bilateral lower legs he states the pain is worse with any sort of movement he has been seen twice in this emergency department over the past week and a half and has tramadol at home which she has been taking he states that the pain is gone to the point where he is unable to get up and get around at his house is unable to be cared for at home he denies any numbness or tingling in the extremities he denies any fevers or chills abdominal pain nausea or vomiting bowel or bladder incontinence or any other symptoms Related Data Home Medications Medication Instructions Recorded Confirmed cholecalciferol (vitamin D3) 50 50 mcg PO DAILY 03/05/20 08/28/22 mcg (2,000 unit) capsule acetaminophen 325 mg tablet 325 mg PO Q6H PRN Pain 07/08/21 08/28/22 (Tylenol) losartan 50 mg tablet 25 mg PO DAILY 08/28/22 08/28/22 sertraline 50 mg tablet 50 mg PO DAILY 08/28/22 08/28/22 Allergies Allergy/AdvReac Type Severity Reaction Status Date / Time No Known Allergies Allergy Verified 09/02/22 10:54 Review of Systems Review of Systems: Gen.: Denies fevers or chills ENT: Denies congestion Respiratory: Denies shortness of breath or cough CV: Denies chest pain or palpitations GI: Denies abdominal pain nausea, emesis or diarrhea denies incontinence Musculoskeletal: See HPI Neuro: Denies numbness, tingling, weakness or focal weakness Skin: Denies rash Except as documented, all other systems reviewed and negative PMFSH Past Medical History Medical History Actinic keratosis Anxiety Basal cell carcinoma Essential (primary) hypertension Gastroesophageal reflux disease Mixed hyperlipidemia Stage 4 chronic kidney disease Type 2 diabetes mellitus Surgical History Surgical History History of basal cell carcinoma excision History of laparoscopic cholecystectomy (03/05/00) History of lumbar laminectomy for spinal cord decompression Family History Family History Father Family history of pancreatic cancer Sibling Family history of diabetes mellitus in first degree relative Family history of pancreatic cancer Social History Social History Social History: Surrogate medical decision maker: Naheed Green, spouse. Code status: Full code. Smoking status: Never smoker Second hand tobacco smoke exposure: No Alcohol intake: never Substance use: never Substance use type: does not use Lack of Transportation: No Lack of Food: Never True Current Housing: I Have Housing Concerned About Future Housing: No Difficulty Paying Gas/Electric Bills: No Difficulty Paying for Meds: No Currently Unemployed: No Education: Don't Know Difficulty w/ Childcare or Family Care: No Living arrangements: with family Occupation/Education: retired Spiritual care concerns: No Exam Narrative: APPEARANCE: No acute distress, nontoxic, resting in bed EYES: EOMI HEENT: Normocephalic, atraumatic, OMM RESPIRATORY: No respiratory distress Clear to auscultation bilaterally with no rhonchi wheezing or rales. CARDIOVASCULAR: Regular rate and rhythm without murmurs rubs or gallops. ABDOMINAL: Soft, nontender, nondistended, no rebound or guarding Back: No midline lumbar thoracic tenderness to palpation tender p
[2022-09-12] MEDS: MORPHINE SULFATE (*CRX) 2 MG/ML INJ IV PUSH (08:17)
[2022-09-12 08:27] LABS: Basophils Absolute Auto 0.1 K/mm3 (0.0-0.1); Basophils Percent Auto 0.5 % (0.2-1.2); Eosinophils Absolute Auto 0.1 K/mm3 (0-0.3); Eosinophils Percent Auto 0.8 % (0-4.4); Hematocrit 45.3 % (42.0-52.0); Hemoglobin 14.4 g/dL (14.0-18.0); Immature Granulocyte Absolute 0.06 K/mm3 (0.00-0.031); Immature Granulocyte Percent A 0.6 % (0-0.5); Lymphocytes Absolute Auto 2.13 K/mm3 (0.9-3.2); Lymphocytes Percent Auto 22.5 % (18.3-44.2); Mean Corpuscular HGB Conc 31.8 g/dl (32-36); Mean Corpuscular Hemoglobin 31.2 pg (26-34); Mean Corpuscular Volume 98.1 fl (80-100); Mean Platelet Volume 9.9 fl (7.4-10.4); Monocytes Percent Auto 10.7 % (2.6-8.5); Neutrophils Absolute Auto 6.1 K/mm3 (1.3-6.7); Neutrophils Percent Auto 64.9 % (45.5-73.1); Platelet Count Result 189 k/mm3 (150-375); Red Blood Count 4.62 M/mm3 (4.6-6.20); Red Cell Distribution Width 13.2 % (11.5-14.5); White Blood Count 9.5 K/mm3 (4.5-10.0)
[2022-09-12 08:37] LABS: Alanine Aminotransferase 23 U/L (6-50); Albumin Level 4.4 g/dL (3.5-5.1); Alkaline Phosphatase 99 U/L (38-126); Anion Gap 9 mmol/L (8-16); Aspartate Amino Transferase 27 U/L (17-59); Bilirubin,Total 0.6 mg/dL (0.2-1.3); Blood Urea Nitrogen 45 mg/dL (9-20); Calcium 9.3 mg/dL (8.4-10.2); Carbon Dioxide 28 mmol/L (22-30); Chloride 97 mmol/L (98-107); Estimated CRCL calculation 27 ml/min; Estimated Glomerular Filt Rate 30; Glucose 173 mg/dL (65-110); Potassium 4.2 mmol/L (3.4-5.0); Sodium 134 mmol/L (137-145)
[2022-09-12 09:51] LABS: Appearance Urine Clear (Clear); Bilirubin Urine Negative (Negative); Blood Urine 2+ (Negative); Color Urine Yellow (Yellow); Glucose Urine UA 1+ mg/dL (Negative); Ketones Urine Negative (Negative); Leukocyte Esterase Ur Negative LEU/UL (Negative); Nitrate Urine Negative (Negative); Protein Urine 3+ mg/dL (Negative); Specific Grav Ur 1.025 (1.001-1.035); Urobilinogen Urine 0.2 mg/dL (<2.0)
[2022-09-12 09:52] LABS: Mucus Urine Rare /lpf; Squamous Epithelial Cell Urine Rare /hpf (Few); WBC Urine 0-3 /hpf
[2022-09-12 09:58] LABS: Add Urine Microscopic? YES
[2022-09-12 10:05] VITALS: BP 126/95; PULSE 82; RESP 12; O2SAT 98
[2022-09-12 10:30] LABS: Influenza A QL RT-PCR Negative (Negative); Influenza B QL RT-PCR Negative (Negative); SARS-CoV-2 RNA PCR Negative
[2022-09-12 11:46] VITALS: BMI 30.2
--- NOTE | 2022-09-12 11:48 | PC.NURSE ---
This patient, Denilson Green, was admitted to [facility] Surg Room 332-02. Patient/family oriented to hospital policies and general routines including ID bracelet, bed and alarms, visiting hours, pain management, procedures, bathroom and other care routines, personal items, smoking policy, room service/diet, and visiting hours. Information on how to activate the Rapid Response Team has been discussed. Patient/Family are encouraged to report perceived risks to care and to ask questions if they do not understand what they are told or what they should do.
[2022-09-12 11:49] LABS: Glucose Point of Care 193 mg/dl (65-105)
--- NOTE | 2022-09-12 13:48 | PM.IMHP ---
H&P: HPI History of Present Illness Date/Time: 09/12/22 13:48 Chief Complaint: Back pain Narrative: This is an 87-year-old male patient who lives with his . The patient came to the emergency room with complaints of lower back pain. This is chronic and he has had a history of lower back surgery. His pain has been recurring for the last 2 weeks. The pain is worse with movement. The patient stated that he previously had a lower back belt and he was leaving it all the time. And then when he took it off he felt worsening of the pain. Patient is continent of bowel and bladder and is able to move all extremities. The patient can ambulate some. His pain radiates down his legs. The patient was recently discharged from this hospital on 08/29/2022 please see discharge note. Has a history of chronic renal failure and his creatinine is 2.1 today earlier this month that was 2.6. Blood sugar 193. He is negative for influenza A/B and COVID. Patient was given morphine in the emergency room. Under surgery has been consulted and the patient is being admitted to observation status on the date 09/12/2022. Review of Systems Review of Systems: See HPI All systems reviewed & are unremarkable except as noted in HPI and below Constitutional: Constitutional: Reports as per HPI and Reports no additional constitutional complaints Eyes: Eyes: Reports as per HPI and Reports no additional eye complaints ENT: Reports system reviewed and no additional complaints, except as documented and Reports Normal hearing present Cardiovascular: Cardiovascular: Reports no additional cardiovascular complaints Respiratory: Respiratory: Reports no additional respiratory complaints and Reports no additional respiratory complaints Gastrointestinal: Gastrointestinal: Reports as per HPI and Reports no additional gastrointestinal complaints Musculoskeletal: Musculoskeletal: Reports no additional musculoskeletal complaints Integumentary/Breasts: Skin/Breast: Reports system reviewed and no additional complaints, except as docu and Reports as per HPI Neurologic: Reports system reviewed and no additional complaints, except as documented, Reports as per HPI and Reports Normal hearing present Psychiatric: Psychiatric: Reports no additional psychiatric complaints and Reports as per HPI Endocrine: Endocrine: Reports no additional endocrine complaints Hematologic/Lymphatic: Hematologic/Lymphatic: Reports no additional hematologic/lymphatic complaints Allergic/Immunologic: Allergic/Immunologic: Reports no additional allergic/immunologic complaints [facility] Past Medical History Medical History Actinic keratosis Anxiety Basal cell carcinoma Essential (primary) hypertension Gastroesophageal reflux disease Mixed hyperlipidemia Stage 4 chronic kidney disease Type 2 diabetes mellitus Surgical History Surgical History (Updated 09/12/22 @ 14:[address] NP) History of basal cell carcinoma excision History of laparoscopic cholecystectomy (03/05/00) History of lumbar laminectomy for spinal cord decompression History of removal of pigmented skin lesion Family History Family History Father Family history of pancreatic cancer Sibling Family history of diabetes mellitus in first degree relative Family history of pancreatic cancer Social History Social History (Updated 09/12/22 @ 14:[address] NP) Social History: The patient is and lives with his . He has no children. He is retired from [employer]. Surrogate medical decision maker: Naheed Green, spouse. Code status: Full code. Smoking status: Never smoker Second hand tobacco smoke exposure: No Alcohol intake: never Substance use: never Substance use type: does not use Lack of Transportation: No Lack of Food: Never True Current Housing: I Have Housing
[2022-09-12 14:00] VITALS: BP 166/97; PULSE 90; RESP 20; TEMP 35.9; O2SAT 97
--- NOTE | 2022-09-12 16:33 | PC.NURSE ---
Frog Catcher confirmed medications with Naheed over the phone because patient does not know what he takes.
[2022-09-12 16:42] LABS: Glucose Point of Care 250 mg/dl (65-105)
[2022-09-12] MEDS: INSULIN ASPART (*BKC) 100 UNITS/ML SUB-Q (18:23)
[2022-09-12 20:00] VITALS: PULSE 82; RESP 18; O2SAT 97
[2022-09-12 21:41] VITALS: BP 138/86; PULSE 87; RESP 14; TEMP 36.2; O2SAT 97
[2022-09-12 22:21] LABS: Glucose Point of Care 210 mg/dl (65-105)
[2022-09-12] MEDS: DOCUSATE SODIUM 100 MG CAPSULE PO (22:25)
[2022-09-13 05:37] VITALS: BP 117/71; PULSE 91; RESP 14; TEMP 36.4; O2SAT 97
[2022-09-13 07:52] LABS: Basophils Absolute Auto 0.1 K/mm3 (0.0-0.1); Basophils Percent Auto 0.8 % (0.2-1.2); Eosinophils Absolute Auto 0.2 K/mm3 (0-0.3); Eosinophils Percent Auto 1.9 % (0-4.4); Hematocrit 44.8 % (42.0-52.0); Hemoglobin 14.4 g/dL (14.0-18.0); Immature Granulocyte Absolute 0.05 K/mm3 (0.00-0.031); Immature Granulocyte Percent A 0.6 % (0-0.5); Lymphocytes Absolute Auto 3.45 K/mm3 (0.9-3.2); Lymphocytes Percent Auto 38.3 % (18.3-44.2); Mean Corpuscular HGB Conc 32.1 g/dl (32-36); Mean Corpuscular Hemoglobin 31.3 pg (26-34); Mean Corpuscular Volume 97.4 fl (80-100); Mean Platelet Volume 11.1 fl (7.4-10.4); Monocytes Percent Auto 11.1 % (2.6-8.5); Neutrophils Absolute Auto 4.3 K/mm3 (1.3-6.7); Neutrophils Percent Auto 47.3 % (45.5-73.1); Platelet Count Result 212 k/mm3 (150-375); Red Cell Distribution Width 13.1 % (11.5-14.5)
[2022-09-13] MEDS: ASPIRIN 81 MG CHEWABLE TABLET 162 MG PO (08:10)
[2022-09-13] MEDS: DOCUSATE SODIUM 100 MG CAPSULE PO ×2 (08:10→21:07)
[2022-09-13] MEDS: ATORVASTATIN 40 MG TABLET PO (08:10)
[2022-09-13] MEDS: PIOGLITAZONE HCL 30 MG TABLET PO (08:11)
[2022-09-13] MEDS: LOSARTAN POTASSIUM 25 MG TABLET PO (08:11)
[2022-09-13] MEDS: CHOLECALCIFEROL 1,000 UNITS TABLET 2000 UNITS PO (08:11)
[2022-09-13] MEDS: glipiZIDE 5 MG TABLET 10 MG PO (08:11)
[2022-09-13] MEDS: LIDOCAINE 5% PATCH 1 PATCH TRANSDERM (08:11)
[2022-09-13] MEDS: SERTRALINE HCL 50 MG TABLET PO (08:11)
[2022-09-13 08:13] LABS: Alanine Aminotransferase 23 U/L (6-50); Albumin Level 3.9 g/dL (3.5-5.1); Alkaline Phosphatase 92 U/L (38-126); Anion Gap 8 mmol/L (8-16); Aspartate Amino Transferase 27 U/L (17-59); Bilirubin,Total 0.6 mg/dL (0.2-1.3); Blood Urea Nitrogen 54 mg/dL (9-20); Calcium 8.8 mg/dL (8.4-10.2); Carbon Dioxide 28 mmol/L (22-30); Chloride 100 mmol/L (98-107); Estimated CRCL calculation 27 ml/min; Estimated Glomerular Filt Rate 30; Glucose 187 mg/dL (65-110); Potassium 4.2 mmol/L (3.4-5.0); Sodium 136 mmol/L (137-145)
[2022-09-13 08:20] LABS: Glucose Point of Care 182 mg/dl (65-105)
[2022-09-13] MEDS: traMADol HCL (*CRX) 50 MG TABLET PO ×2 (08:38→21:08)
[2022-09-13] MEDS: CYCLOBENZAPRINE HCL 5 MG TABLET PO ×2 (08:38→16:58)
--- NOTE | 2022-09-13 11:36 | PCOTNOTE ---
Therapy orders received. Neuro has been consulted on this patient due to radiating back pain. Pt's lumbar MRI (+) acute vs. subacute L3 compression fx. Will attempt to see following neuro recommendations.
[2022-09-13 11:42] LABS: Glucose Point of Care 205 mg/dl (65-105)
[2022-09-13] MEDS: methylPREDNISolone (MEDROL) DOSEPACK 4 MG TABLETS PO ×3 (11:47→21:08)
[2022-09-13] MEDS: INSULIN ASPART (*BKC) 100 UNITS/ML SUB-Q (11:47)
--- NOTE | 2022-09-13 13:00 | PM.IMPN ---
Progress Note: A&P Assessment and Plan (1) Chronic low back pain: Code(s): M54.5 - Low back pain; G89.29 - Other chronic pain Status: Acute Assessment and Plan: -the patient had been on Ultram at home and that does not appear to be helping. -I added Flexeril at low doses. -neurosurgery has been consulted. -patient may need A TSLo back brace. -PT OT evaluation greatly be appreciated. -the patient may also be referred to outpatient pain management. -continue with analgesics here. -continue with his Medrol Dosepak on his home med list. (2) Type 2 diabetes mellitus with stage 4 chronic kidney disease: Qualifiers: Diabetes mellitus half-way insulin use: without half-way use Qualified Code(s): E11.22 - Type 2 diabetes mellitus with diabetic chronic kidney disease; N18.4 - Chronic kidney disease, stage 4 (severe) Code(s): E11.22 - Type 2 diabetes mellitus with diabetic chronic kidney disease; N18.4 - Chronic kidney disease, stage 4 (severe) Status: Acute Assessment and Plan: Accu-Cheks AC and HS check A1c. Sliding scale insulin with hypoglycemic protocol. -continue with glipizide -continue pioglitazone (3) Essential (primary) hypertension: Code(s): I10 - Essential (primary) hypertension Status: Acute Assessment and Plan: -continue losartan (4) Anxiety: Code(s): F41.9 - Anxiety disorder, unspecified Status: Acute Assessment and Plan: -continue sertraline (5) Chronic kidney disease, stage 3 unspecified: Code(s): N18.30 - Chronic kidney disease, stage 3 unspecified Status: Acute Assessment and Plan: -patient's creatinine is 2.1 today with a GFR of 30. His creatinine is 2.1 today is acid was 2.6. Avoid nephrotoxic medication if possible. (6) Mixed hyperlipidemia: Code(s): E78.2 - Mixed hyperlipidemia Status: Acute Assessment and Plan: Did she continue with atorvastatin Subjective Date/time seen: 09/13/22 13:00 Pain better controlled Exam Const: General: cooperative, healthy appearing, comfortable, no acute distress, well developed, alert, awake, Physically active, average body habitus, well nourished and overweight Nutritional Appearance: average body habitus, well nourished and overweight Orientation/consciousness: oriented to person, oriented to place, oriented to time and patient oriented x3 Limitations: no limitations HENMT: Head: normal to inspection, No palpable skull fracture present, normocephalic, atraumatic and abrasion Ears: hearing grossly normal bilaterally, external ears normal and TM's normal bilaterally Face/Nose/Sinus: Normal external nose present, Normal nares present and No nasal polyps present Mouth: Yes Normal oral and palatal mucosa present Throat: posterior oropharynx normal Eyes: General: appearance normal, both eyes and all related structures Alignment and Position: alignment normal Periorbital: periorbital findings normal Eyelids: eyelids normal Conjunctivae: conjunctivae normal Sclera: sclerae normal Cornea: corneas normal Pupils: Equal, round and reactive pupils present and Pupil accommodation reflex normal EOM: EOMs intact bilaterally Neck: Neck: normal visual inspection, full ROM, no lymphadenopathy, trachea midline and supple Thyroid: thyroid normal Carotids: normal carotid upstroke Lymphatic: no lymphadenopathy noted Chest: Chest palpation & inspection: normal inspection of the chest Resp: Effort & Inspection: normal respiratory effort Auscultation: clear to auscultation bilaterally Percussion: percussion normal Cardio: Palpation: normal PMI Rate: regular rate Rhythm: regular rhythm Heart sounds: S1 normal heart sound present and S2 normal heart sound present Peripheral pulses: Peripheral pulses 2+ throughout GI: Inspection: normal to inspection Auscultation: normal bowel sounds Rectal Exam: deferred : General: Yes no CVA tenderness Back/Spine/
--- NOTE | 2022-09-13 13:03 | WPDNEUROSGCN ---
Assessment and Plan Assessment and plan (1) Lumbar compression fracture: Code(s): S32.000A - Wedge compression fracture of unspecified lumbar vertebra, initial encounter for closed fracture Status: Acute (2) Lumbar stenosis without neurogenic claudication: Code(s): M48.061 - Spinal stenosis, lumbar region without neurogenic claudication Status: Acute Plan Mr. Green is an 87-year-old male with history of stage 4 CKD and diabetes who was found to have an L3 compression fracture after presenting with intractable back pain. He denies any lower-extremity symptoms at this time and is neurologically intact on exam. His MRI does also reveal significant central lumbar stenosis at L3; however, I do believe this is a chronic process, and given that he is asymptomatic with respect to his legs, I do not recommend treating him surgically at this time. I do recommend a TLSO brace for the fracture which should be worn when out of bed. I also recommend upright lumbar xrays in the brace once it is fitted and PT/OT evaluation. I will plan to follow him as an outpatient for the lumbar stenosis should he develop symptoms consistent with this as well as for the fracture. Plan: -Recommend TLSO brace to be worn when out of bed -Recommend upright lumbar xrays in the brace -Recommend PT/OT evaluations once brace is fitted Review of Systems Review of Systems: All systems reviewed & are unremarkable except as noted in HPI and below PMFSH Past Medical History Medical History (Updated 09/13/22 @ 13:19 by Janett Dias MD) Actinic keratosis Anxiety Basal cell carcinoma Essential (primary) hypertension Gastroesophageal reflux disease Mixed hyperlipidemia Stage 4 chronic kidney disease Type 2 diabetes mellitus Surgical History Surgical History (Updated 09/12/22 @ 14:[address] NP) History of basal cell carcinoma excision History of laparoscopic cholecystectomy (03/05/00) History of lumbar laminectomy for spinal cord decompression History of removal of pigmented skin lesion Family History Family History Father Family history of pancreatic cancer Sibling Family history of diabetes mellitus in first degree relative Family history of pancreatic cancer Social History Social History (Updated 09/12/22 @ 14:[address] NP) Social History: The patient is and lives with his . He has no children. He is retired from [employer]. Surrogate medical decision maker: Naheed Green, spouse. Code status: Full code. Smoking status: Never smoker Second hand tobacco smoke exposure: No Alcohol intake: never Substance use: never Substance use type: does not use Lack of Transportation: No Lack of Food: Never True Current Housing: I Have Housing Concerned About Future Housing: No Difficulty Paying Gas/Electric Bills: No Difficulty Paying for Meds: No Currently Unemployed: No Education: Don't Know Difficulty w/ Childcare or Family Care: No Living arrangements: with family Occupation/Education: retired Spiritual care concerns: No Meds Home Medications and Allergies Home Medications Medication Instructions Recorded Confirmed Type cholecalciferol (vitamin D3) 50 50 mcg PO DAILY 03/05/20 09/12/22 History mcg (2,000 unit) capsule lancets (Lancets, Super Thin) #100 ea 05/02/20 09/12/22 Rx acetaminophen 325 mg tablet 325 mg PO Q6H PRN Pain 07/08/21 09/12/22 History (Tylenol) blood sugar diagnostic (OneTouch #100 ea 11/06/21 09/12/22 Rx Verio test strips) glipizide 10 mg tablet 10 mg PO DAILY #90 tabs 02/28/22 09/12/22 Rx pioglitazone 30 mg tablet 30 mg PO DAILY #90 tabs 08/14/22 09/12/22 Rx losartan 50 mg tablet 25 mg PO DAILY 08/28/22 09/12/22 History sertraline 50 mg tablet 50 mg PO DAILY 08/28/22 09/12/22 History aspirin 81 mg chewable tablet 162 mg PO DAILY@0800 #60 tabs 08/29/22 09/12/22 Rx
--- NOTE | 2022-09-13 13:36 | PCPTNOTE ---
Neuro consulted on patient and per notes agrees with PT/OT once pt has TLSO fitted. Not ordered at this time, will follow.
[2022-09-13] MEDS: MORPHINE SULFATE (*CRX) 2 MG/ML INJ IV PUSH (13:52)
[2022-09-13 14:00] VITALS: BP 110/70; PULSE 74; RESP 20; TEMP 36.2; O2SAT 96
[2022-09-13 15:57] LABS: Hemoglobin A1C 7.6 % (<5.7)
[2022-09-13 16:54] LABS: Glucose Point of Care 136 mg/dl (65-105)
[2022-09-13 20:00] VITALS: PULSE 86; RESP 18; O2SAT 97
[2022-09-13 20:16] LABS: Glucose Point of Care 300 mg/dl (65-105)
[2022-09-13 21:48] VITALS: BP 94/50; PULSE 81; RESP 14; TEMP 36.1; O2SAT 96
[2022-09-14] MEDS: methylPREDNISolone (MEDROL) DOSEPACK 4 MG TABLETS PO ×2 (05:37→11:59)
[2022-09-14 08:19] LABS: Glucose Point of Care 197 mg/dl (65-105)
[2022-09-14] MEDS: CYCLOBENZAPRINE HCL 5 MG TABLET PO ×2 (08:20→20:42)
[2022-09-14] MEDS: DOCUSATE SODIUM 100 MG CAPSULE PO ×2 (08:21→20:42)
[2022-09-14] MEDS: glipiZIDE 5 MG TABLET 10 MG PO (08:21)
[2022-09-14] MEDS: PIOGLITAZONE HCL 30 MG TABLET PO (08:21)
[2022-09-14] MEDS: CHOLECALCIFEROL 1,000 UNITS TABLET 2000 UNITS PO (08:21)
[2022-09-14] MEDS: ASPIRIN 81 MG CHEWABLE TABLET 162 MG PO (08:21)
[2022-09-14] MEDS: ATORVASTATIN 40 MG TABLET PO (08:22)
[2022-09-14] MEDS: LOSARTAN POTASSIUM 25 MG TABLET PO (08:22)
[2022-09-14] MEDS: SERTRALINE HCL 50 MG TABLET PO (08:22)
[2022-09-14] MEDS: MORPHINE SULFATE (*CRX) 2 MG/ML INJ IV PUSH ×2 (10:39→15:04)
--- NOTE | 2022-09-14 10:46 | PCOTNOTE ---
Checked in regarding TLSO brace - Paint Sprayer Sandblaster to be called tomorrow to fit patient. OT evaluation to be completed after brace is fitted.
--- NOTE | 2022-09-14 10:54 | PM.IMPN ---
Progress Note: A&P Assessment and Plan (1) Chronic low back pain: Code(s): M54.5 - Low back pain; G89.29 - Other chronic pain Status: Acute Assessment and Plan: -the patient had been on Ultram at home and that does not appear to be helping. -I added Flexeril at low doses. -neurosurgery has been consulted. -patient needs TSLo back brace. -PT OT evaluation greatly be appreciated. -the patient may also be referred to outpatient pain management. -continue with analgesics here. -continue with his Medrol Dosepak on his home med list. (2) Type 2 diabetes mellitus with stage 4 chronic kidney disease: Qualifiers: Diabetes mellitus penitentiary insulin use: without long distance billing operator use Qualified Code(s): E11.22 - Type 2 diabetes mellitus with diabetic chronic kidney disease; N18.4 - Chronic kidney disease, stage 4 (severe) Code(s): E11.22 - Type 2 diabetes mellitus with diabetic chronic kidney disease; N18.4 - Chronic kidney disease, stage 4 (severe) Status: Acute Assessment and Plan: Accu-Cheks AC and HS check A1c. Sliding scale insulin with hypoglycemic protocol. -continue with glipizide -continue pioglitazone (3) Essential (primary) hypertension: Code(s): I10 - Essential (primary) hypertension Status: Acute Assessment and Plan: -continue losartan (4) Anxiety: Code(s): F41.9 - Anxiety disorder, unspecified Status: Acute Assessment and Plan: -continue sertraline (5) Chronic kidney disease, stage 3 unspecified: Code(s): N18.30 - Chronic kidney disease, stage 3 unspecified Status: Acute Assessment and Plan: -patient's creatinine is 2.1 today with a GFR of 30. His creatinine is 2.1 today is acid was 2.6. Avoid nephrotoxic medication if possible. (6) Mixed hyperlipidemia: Code(s): E78.2 - Mixed hyperlipidemia Status: Acute Assessment and Plan: Did she continue with atorvastatin Subjective Date/time seen: 09/14/22 10:54 pain better Exam Const: General: cooperative, healthy appearing, comfortable, no acute distress, well developed, alert, awake, Physically active, average body habitus, well nourished and overweight Nutritional Appearance: average body habitus, well nourished and overweight Orientation/consciousness: oriented to person, oriented to place, oriented to time and patient oriented x3 Limitations: no limitations HENMT: Head: normal to inspection, No palpable skull fracture present, normocephalic, atraumatic and abrasion Ears: hearing grossly normal bilaterally, external ears normal and TM's normal bilaterally Face/Nose/Sinus: Normal external nose present, Normal nares present and No nasal polyps present Mouth: Yes Normal oral and palatal mucosa present Throat: posterior oropharynx normal Eyes: General: appearance normal, both eyes and all related structures Alignment and Position: alignment normal Periorbital: periorbital findings normal Eyelids: eyelids normal Conjunctivae: conjunctivae normal Sclera: sclerae normal Cornea: corneas normal Pupils: Equal, round and reactive pupils present and Pupil accommodation reflex normal EOM: EOMs intact bilaterally Neck: Neck: normal visual inspection, full ROM, no lymphadenopathy, trachea midline and supple Thyroid: thyroid normal Carotids: normal carotid upstroke Lymphatic: no lymphadenopathy noted Chest: Chest palpation & inspection: normal inspection of the chest Resp: Effort & Inspection: normal respiratory effort Auscultation: clear to auscultation bilaterally Percussion: percussion normal Cardio: Palpation: normal PMI Rate: regular rate Rhythm: regular rhythm Heart sounds: S1 normal heart sound present and S2 normal heart sound present Peripheral pulses: Peripheral pulses 2+ throughout GI: Inspection: normal to inspection Auscultation: normal bowel sounds Rectal Exam: deferred : General: Yes no CVA tenderness Back/Spine/Pelvis: Back:
--- NOTE | 2022-09-14 11:06 | PCPTNOTE ---
Pt does not yet have TLSO brace, per RN they will be calling Air Traffic Control Specialist tomorrow. Will attempt PT evaluation once pt has TLSO.
[2022-09-14 11:53] LABS: Glucose Point of Care 288 mg/dl (65-105)
[2022-09-14] MEDS: INSULIN ASPART (*BKC) 100 UNITS/ML SUB-Q ×2 (11:58→17:23)
[2022-09-14 14:00] VITALS: BP 106/58; PULSE 80; RESP 20; TEMP 36.1; O2SAT 97
--- NOTE | 2022-09-14 14:44 | WPDNEUROSGPN ---
Progress Note: A&P Assessment and Plan (1) Lumbar stenosis without neurogenic claudication: Code(s): M48.061 - Spinal stenosis, lumbar region without neurogenic claudication Status: Acute (2) Lumbar compression fracture: Code(s): S32.000A - Wedge compression fracture of unspecified lumbar vertebra, initial encounter for closed fracture Status: Acute Plan Mr. Green is awaiting the TLSO brace. He will get upright AP/lateral lumbar xrays in the brace once it is fitted. He will work with therapy once he is in the brace to help with mobilization. His and nephew expressed concern about his ability to mobilize once he goes home as his will be unable to provide him much assistance. We will see what therapy recommends in terms of how much assistance he will need. I will arrange for outpatient follow up in clinic in about 6 weeks to see how the fracture is healing. Subjective Date/time seen: 09/14/22 14:44 Interval history: Complaining of back pain when he twists or tries to get up. Continues to deny leg pain or paresthesias. Awaiting brace to be fit. Exam Narrative: Alert and conversive Full strength in lower extremities Sensation intact to light touch Objective Data Vital Signs Vital Signs: Vital Signs - 24 hr 09/13/22 21:48 09/13/22 20:00 09/14/22 08:20 Temperature 96.9 F L Pulse Rate 81 86 Respiratory Rate 14 18 Blood Pressure 94/50 L Pulse Oximetry 96 97 Oxygen Delivery Room Air Room Air Intake/Output Intake/Output: Intake & Output 09/11/22 09/12/22 09/13/22 09/14/22 23:59 23:59 23:59 23:59 Intake Total 240 1690 480 Output Total 0 1000 Balance 240 690 480 Meds/Results Medications: Active Medications Generic Name Dose Route Start Last Admin Trade Name Freq PRN Reason Stop Dose Admin Acetaminophen 325 mg 09/12/22 17:01 Acetaminophen 325 Mg Tablet PO Q6H PRN Pain 1-3 Aspirin 162 mg 09/13/22 08:00 09/14/22 08:21 Aspirin 81 Mg Chewable Tablet PO 162 mg DAILY@0800 MARIAM Administration Atorvastatin Calcium 40 mg 09/13/22 09:00 09/14/22 08:22 Atorvastatin 40 Mg Tablet PO 40 mg DAILY MARAIM Administration Cyclobenzaprine HCl 5 mg 09/12/22 14:33 09/14/22 08:20 Cyclobenzaprine Hcl 5 Mg Tablet PO 5 mg Q8H PRN Administration Muscle Spasm Dextrose 12.5 gm 09/12/22 14:32 Dextrose 50% 25 Gm/50 Ml Syringe IV PUSH PRN PRN Hypoglycemia Protocol Docusate Sodium 100 mg 09/12/22 22:15 09/14/22 08:21 Docusate Sodium 100 Mg Capsule PO 100 mg Q12HR MARIAM Administration Glipizide 10 mg 09/13/22 09:00 09/14/22 08:21 Glipizide 5 Mg Tablet PO 10 mg DAILY MARIAM Administration Glucagon 1 mg 09/12/22 14:32 Glucagon For Inj 1 Mg Vial IM PRN PRN Hypoglycemia Protocol Glucose 15 gm 09/12/22 14:32 Glucose Oral Gel 15 Gm Of Glucse In 37.5 Gm Tube PO PRN PRN Hypoglycemia Protocol Dextrose 1,000 mls @ 100 mls/hr 09/12/22 14:32 Dextrose 5% 1,000 Ml IVPB PRN PRN Hypoglycemia Protocol Insulin Aspart 2 - 5 units 09/12/22 17:00 09/14/22 11:58 Insulin Aspart (*Bkc) 100 Units/Ml SUB-Q 3 units TIDWM MARIAM Administration Protocol Lidocaine 1 patch 09/13/22 09:00 09/14/22 08:28 Lidocaine 5% Patch TRANSDERM Not Given DAILY [facility] Losartan Potassium 25 mg 09/13/22 09:00 09/14/22 08:22 Losartan Potassium 25 Mg Tablet PO 25 mg DAILY MARIAM Administration Methylprednisolone 4 mg 09/13/22 12:00 09/14/22 11:59 Methylprednisolone (Medrol) Dosepack 4 Mg Tablets PO 09/16/22 06:59 4 mg 0630,1200,2100 MARIAM Administration Taper Protocol Morphine Sulfate 2 mg 09/12/22 14:34 09/14/22 10:39 Morphine Sulfate (*Crx) 2 Mg/Ml Inj IV PUSH 2 mg Q4H PRN Administration Pain Rated 7-10 Pioglitazone HCl 30 mg 09/13/22 09:00 09/14/22 08:21 Pioglitazone Hcl 30 Mg Tablet PO 30 mg DAILY S
[2022-09-14 17:01] LABS: Glucose Point of Care 227 mg/dl (65-105)
[2022-09-14] MEDS: traMADol HCL (*CRX) 50 MG TABLET PO (17:22)
[2022-09-14 20:00] VITALS: PULSE 78; RESP 14; O2SAT 97
[2022-09-14 20:05] LABS: Glucose Point of Care 270 mg/dl (65-105)
[2022-09-14 22:00] VITALS: BP 108/59; PULSE 78; RESP 14; TEMP 36.6; O2SAT 97
[2022-09-15] MEDS: methylPREDNISolone (MEDROL) DOSEPACK 4 MG TABLETS PO ×3 (05:21→20:57)
[2022-09-15 06:00] VITALS: BP 122/60; PULSE 80; RESP 14; TEMP 36.8; O2SAT 98
[2022-09-15 07:59] LABS: Glucose Point of Care 158 mg/dl (65-105)
[2022-09-15] MEDS: DOCUSATE SODIUM 100 MG CAPSULE PO ×2 (08:00→20:57)
[2022-09-15] MEDS: ASPIRIN 81 MG CHEWABLE TABLET 162 MG PO (08:00)
[2022-09-15] MEDS: SERTRALINE HCL 50 MG TABLET PO (08:01)
[2022-09-15] MEDS: CHOLECALCIFEROL 1,000 UNITS TABLET 2000 UNITS PO (08:01)
[2022-09-15] MEDS: ATORVASTATIN 40 MG TABLET PO (08:01)
[2022-09-15] MEDS: LOSARTAN POTASSIUM 25 MG TABLET PO (08:01)
[2022-09-15] MEDS: glipiZIDE 5 MG TABLET 10 MG PO (08:01)
[2022-09-15] MEDS: PIOGLITAZONE HCL 30 MG TABLET PO (08:01)
[2022-09-15] MEDS: CYCLOBENZAPRINE HCL 5 MG TABLET PO ×2 (08:04→21:00)
--- NOTE | 2022-09-15 08:26 | PCOTNOTE ---
Will complete OT evaluation when back brace is received.
--- NOTE | 2022-09-15 11:37 | PM.IMPN ---
Progress Note: A&P Assessment and Plan (1) Chronic low back pain: Code(s): M54.5 - Low back pain; G89.29 - Other chronic pain Status: Acute Assessment and Plan: -the patient had been on Ultram at home and that does not appear to be helping. -flexeril appears to be helping -neurosurgery has been consulted. -patient needs TSLo back brace. -PT OT evaluation greatly be appreciated. (2) Type 2 diabetes mellitus with stage 4 chronic kidney disease: Qualifiers: Diabetes mellitus termite control technician insulin use: without snf use Qualified Code(s): E11.22 - Type 2 diabetes mellitus with diabetic chronic kidney disease; N18.4 - Chronic kidney disease, stage 4 (severe) Code(s): E11.22 - Type 2 diabetes mellitus with diabetic chronic kidney disease; N18.4 - Chronic kidney disease, stage 4 (severe) Status: Acute Assessment and Plan: Accu-Cheks AC and HS check A1c. Sliding scale insulin with hypoglycemic protocol. -continue with glipizide -continue pioglitazone (3) Essential (primary) hypertension: Code(s): I10 - Essential (primary) hypertension Status: Acute Assessment and Plan: -continue losartan (4) Anxiety: Code(s): F41.9 - Anxiety disorder, unspecified Status: Acute Assessment and Plan: -continue sertraline (5) Chronic kidney disease, stage 3 unspecified: Code(s): N18.30 - Chronic kidney disease, stage 3 unspecified Status: Acute Assessment and Plan: -patient's creatinine is 2.1 today with a GFR of 30. His creatinine is 2.1 today is acid was 2.6. Avoid nephrotoxic medication if possible. (6) Mixed hyperlipidemia: Code(s): E78.2 - Mixed hyperlipidemia Status: Acute Assessment and Plan: Did she continue with atorvastatin Subjective Date/time seen: 09/15/22 11:37 no new complaints Exam Const: General: cooperative, healthy appearing, comfortable, no acute distress, well developed, alert, awake, Physically active, average body habitus, well nourished and overweight Nutritional Appearance: average body habitus, well nourished and overweight Orientation/consciousness: oriented to person, oriented to place, oriented to time and patient oriented x3 Limitations: no limitations HENMT: Head: normal to inspection, No palpable skull fracture present, normocephalic, atraumatic and abrasion Ears: hearing grossly normal bilaterally, external ears normal and TM's normal bilaterally Face/Nose/Sinus: Normal external nose present, Normal nares present and No nasal polyps present Mouth: Yes Normal oral and palatal mucosa present Throat: posterior oropharynx normal Eyes: General: appearance normal, both eyes and all related structures Alignment and Position: alignment normal Periorbital: periorbital findings normal Eyelids: eyelids normal Conjunctivae: conjunctivae normal Sclera: sclerae normal Cornea: corneas normal Pupils: Equal, round and reactive pupils present and Pupil accommodation reflex normal EOM: EOMs intact bilaterally Neck: Neck: normal visual inspection, full ROM, no lymphadenopathy, trachea midline and supple Thyroid: thyroid normal Carotids: normal carotid upstroke Lymphatic: no lymphadenopathy noted Chest: Chest palpation & inspection: normal inspection of the chest Resp: Effort & Inspection: normal respiratory effort Auscultation: clear to auscultation bilaterally Percussion: percussion normal Cardio: Palpation: normal PMI Rate: regular rate Rhythm: regular rhythm Heart sounds: S1 normal heart sound present and S2 normal heart sound present Peripheral pulses: Peripheral pulses 2+ throughout GI: Inspection: normal to inspection Auscultation: normal bowel sounds Rectal Exam: deferred : General: Yes no CVA tenderness Back/Spine/Pelvis: Back: no CVA tenderness Cervical Spine: cervical ROM normal Thoracic/Lumbar Spine: thoracic and lumbar spine normal to inspection Pelvis: no pain wit
[2022-09-15 11:43] LABS: Glucose Point of Care 243 mg/dl (65-105)
[2022-09-15] MEDS: INSULIN ASPART (*BKC) 100 UNITS/ML SUB-Q ×2 (12:11→16:51)
[2022-09-15 14:00] VITALS: BP 80/48; PULSE 82; RESP 20; TEMP 36.6; O2SAT 95
[2022-09-15] MEDS: MORPHINE SULFATE (*CRX) 2 MG/ML INJ IV PUSH (14:02)
--- NOTE | 2022-09-15 15:00 | PCOTNOTE ---
Attempted to see pt. for occupational therapy evaluation. Brace has arrived, but pt. Per nursing, BP is too low while in supine position to attempt out of bed activity at this time. Nursing in agreement and aware. Following
[2022-09-15 16:40] LABS: Glucose Point of Care 219 mg/dl (65-105)
[2022-09-15 16:57] VITALS: BP 110/68
[2022-09-15 19:58] LABS: Glucose Point of Care 223 mg/dl (65-105)
[2022-09-15 20:00] VITALS: PULSE 71; RESP 14; O2SAT 97
[2022-09-15 21:25] VITALS: BP 128/87; PULSE 71; RESP 14; TEMP 36; O2SAT 97
[2022-09-15] MEDS: HYDROcodone/acetaminophen (*CRX) 7.5-325 MG TABLET 1 TAB PO (21:57)
[2022-09-16 06:00] VITALS: BP 130/98; PULSE 82; RESP 16; TEMP 36.1; O2SAT 98
[2022-09-16] MEDS: methylPREDNISolone (MEDROL) DOSEPACK 4 MG TABLETS PO (06:36)
[2022-09-16] MEDS: HYDROcodone/acetaminophen (*CRX) 7.5-325 MG TABLET 1 TAB PO ×2 (06:53→12:29)
[2022-09-16 07:44] LABS: Glucose Point of Care 147 mg/dl (65-105)
[2022-09-16] MEDS: glipiZIDE 5 MG TABLET 10 MG PO (08:47)
[2022-09-16] MEDS: ATORVASTATIN 40 MG TABLET PO (08:48)
[2022-09-16] MEDS: ASPIRIN 81 MG CHEWABLE TABLET 162 MG PO (08:48)
[2022-09-16] MEDS: CHOLECALCIFEROL 1,000 UNITS TABLET 2000 UNITS PO (08:48)
[2022-09-16] MEDS: PIOGLITAZONE HCL 30 MG TABLET PO (08:48)
[2022-09-16] MEDS: LOSARTAN POTASSIUM 25 MG TABLET PO (08:48)
[2022-09-16] MEDS: SERTRALINE HCL 50 MG TABLET PO (08:48)
[2022-09-16] MEDS: DOCUSATE SODIUM 100 MG CAPSULE PO ×2 (08:48→20:17)
[2022-09-16 11:23] LABS: Glucose Point of Care 203 mg/dl (65-105)
--- NOTE | 2022-09-16 11:23 | PM.IMPN ---
Progress Note: A&P Assessment and Plan (1) Chronic low back pain: Code(s): M54.5 - Low back pain; G89.29 - Other chronic pain Status: Acute Assessment and Plan: -continue pain control. -Flexeril appears to be helping -neurosurgery has been consulted. -patient needs TSLo back brace. -PT OT evaluation greatly be appreciated. -will likely need placement (2) Type 2 diabetes mellitus with stage 4 chronic kidney disease: Qualifiers: Diabetes mellitus mcfp insulin use: without mcfp use Qualified Code(s): E11.22 - Type 2 diabetes mellitus with diabetic chronic kidney disease; N18.4 - Chronic kidney disease, stage 4 (severe) Code(s): E11.22 - Type 2 diabetes mellitus with diabetic chronic kidney disease; N18.4 - Chronic kidney disease, stage 4 (severe) Status: Acute Assessment and Plan: Accu-Cheks AC and HS check A1c. Sliding scale insulin with hypoglycemic protocol. -continue with glipizide -continue pioglitazone (3) Essential (primary) hypertension: Code(s): I10 - Essential (primary) hypertension Status: Acute Assessment and Plan: -continue losartan (4) Anxiety: Code(s): F41.9 - Anxiety disorder, unspecified Status: Acute Assessment and Plan: -continue sertraline (5) Chronic kidney disease, stage 3 unspecified: Code(s): N18.30 - Chronic kidney disease, stage 3 unspecified Status: Acute Assessment and Plan: -patient's creatinine is 2.1 today with a GFR of 30. His creatinine is 2.1 today is acid was 2.6. Avoid nephrotoxic medication if possible. (6) Mixed hyperlipidemia: Code(s): E78.2 - Mixed hyperlipidemia Status: Acute Assessment and Plan: Did she continue with atorvastatin Subjective Date/time seen: 09/16/22 11:23 Still having pain. Unable to stand despite a brace. Exam Const: General: cooperative, healthy appearing, comfortable, no acute distress, well developed, alert, awake, Physically active, average body habitus, well nourished and overweight Nutritional Appearance: average body habitus, well nourished and overweight Orientation/consciousness: oriented to person, oriented to place, oriented to time and patient oriented x3 Limitations: no limitations HENMT: Head: normal to inspection, No palpable skull fracture present, normocephalic, atraumatic and abrasion Ears: hearing grossly normal bilaterally, external ears normal and TM's normal bilaterally Face/Nose/Sinus: Normal external nose present, Normal nares present and No nasal polyps present Mouth: Yes Normal oral and palatal mucosa present Throat: posterior oropharynx normal Eyes: General: appearance normal, both eyes and all related structures Alignment and Position: alignment normal Periorbital: periorbital findings normal Eyelids: eyelids normal Conjunctivae: conjunctivae normal Sclera: sclerae normal Cornea: corneas normal Pupils: Equal, round and reactive pupils present and Pupil accommodation reflex normal EOM: EOMs intact bilaterally Neck: Neck: normal visual inspection, full ROM, no lymphadenopathy, trachea midline and supple Thyroid: thyroid normal Carotids: normal carotid upstroke Lymphatic: no lymphadenopathy noted Chest: Chest palpation & inspection: normal inspection of the chest Resp: Effort & Inspection: normal respiratory effort Auscultation: clear to auscultation bilaterally Percussion: percussion normal Cardio: Palpation: normal PMI Rate: regular rate Rhythm: regular rhythm Heart sounds: S1 normal heart sound present and S2 normal heart sound present Peripheral pulses: Peripheral pulses 2+ throughout GI: Inspection: normal to inspection Auscultation: normal bowel sounds Rectal Exam: deferred : General: Yes no CVA tenderness Back/Spine/Pelvis: Back: no CVA tenderness Cervical Spine: cervical ROM normal Thoracic/Lumbar Spine: thoracic and lumbar spine normal to inspection Pelvis: no pain
[2022-09-16] MEDS: INSULIN ASPART (*BKC) 100 UNITS/ML SUB-Q (12:15)
[2022-09-16 13:58] VITALS: BP 84/45; PULSE 80; RESP 16; TEMP 36.1; O2SAT 94
[2022-09-16 16:35] LABS: Glucose Point of Care 191 mg/dl (65-105)
[2022-09-16 16:55] VITALS: BP 109/71; PULSE 73; RESP 20; O2SAT 99
[2022-09-16 20:00] VITALS: PULSE 70; RESP 18; O2SAT 98
[2022-09-16] MEDS: CYCLOBENZAPRINE HCL 5 MG TABLET PO (20:17)
[2022-09-16 20:53] LABS: Glucose Point of Care 120 mg/dl (65-105)
[2022-09-16] MEDS: LIDOCAINE 5% PATCH 1 PATCH TRANSDERM (21:13)
[2022-09-16 22:00] VITALS: BP 97/59; PULSE 70; RESP 18; TEMP 36.6; O2SAT 98
[2022-09-17 06:00] VITALS: BP 147/101; PULSE 81; RESP 20; TEMP 36.9; O2SAT 96
[2022-09-17] MEDS: HYDROcodone/acetaminophen (*CRX) 7.5-325 MG TABLET 1 TAB PO ×3 (06:54→20:14)
[2022-09-17 08:51] LABS: Glucose Point of Care 145 mg/dl (65-105)
[2022-09-17] MEDS: ASPIRIN 81 MG CHEWABLE TABLET 162 MG PO (11:21)
[2022-09-17] MEDS: PIOGLITAZONE HCL 30 MG TABLET PO (11:22)
[2022-09-17] MEDS: glipiZIDE 5 MG TABLET 10 MG PO (11:22)
[2022-09-17] MEDS: DOCUSATE SODIUM 100 MG CAPSULE PO (11:22)
[2022-09-17] MEDS: CHOLECALCIFEROL 1,000 UNITS TABLET 2000 UNITS PO (11:22)
[2022-09-17] MEDS: SERTRALINE HCL 50 MG TABLET PO (11:23)
[2022-09-17] MEDS: ATORVASTATIN 40 MG TABLET PO (11:23)
[2022-09-17 12:12] LABS: Glucose Point of Care 172 mg/dl (65-105)
[2022-09-17] MEDS: SODIUM CHLORIDE 0.9% IV 500 ML IV CONT (13:12)
[2022-09-17 14:00] VITALS: BP 123/83; PULSE 80; RESP 18; TEMP 36.3; O2SAT 97
[2022-09-17 14:05] VITALS: BP 135/91; PULSE 103; RESP 18; O2SAT 97
--- NOTE | 2022-09-17 15:49 | PM.IMPN ---
Progress Note: A&P Assessment and Plan (1) Chronic low back pain: Code(s): M54.5 - Low back pain; G89.29 - Other chronic pain Status: Acute Assessment and Plan: -continue pain control. -Flexeril appears to be helping -neurosurgery has been consulted. -patient needs TSLo back brace. -PT OT evaluation greatly be appreciated. -will likely need placement 09/17/2022 interval history: patient with complaints back pain is found to have spinal stenosis without neurogenic claudication, patient is seen by spine surgery service and recommended TLSO and patient has the brace and he is working with PT however today patient was dizzy and his blood pressure was soft and was unable to participate with PT, will give patient bolus of IV fluids 500cc, will hold losartan, will monitor and further recommendation to follow, his is present in the room. (2) Type 2 diabetes mellitus with stage 4 chronic kidney disease: Qualifiers: Diabetes mellitus nursing home insulin use: without nursing home use Qualified Code(s): E11.22 - Type 2 diabetes mellitus with diabetic chronic kidney disease; N18.4 - Chronic kidney disease, stage 4 (severe) Code(s): E11.22 - Type 2 diabetes mellitus with diabetic chronic kidney disease; N18.4 - Chronic kidney disease, stage 4 (severe) Status: Acute Assessment and Plan: Accu-Cheks AC and HS check A1c. Sliding scale insulin with hypoglycemic protocol. -continue with glipizide -continue pioglitazone (3) Essential (primary) hypertension: Code(s): I10 - Essential (primary) hypertension Status: Acute Assessment and Plan: -continue losartan (4) Anxiety: Code(s): F41.9 - Anxiety disorder, unspecified Status: Acute Assessment and Plan: -continue sertraline (5) Chronic kidney disease, stage 3 unspecified: Code(s): N18.30 - Chronic kidney disease, stage 3 unspecified Status: Acute Assessment and Plan: -patient's creatinine is 2.1 today with a GFR of 30. His creatinine is 2.1 today is acid was 2.6. Avoid nephrotoxic medication if possible. (6) Mixed hyperlipidemia: Code(s): E78.2 - Mixed hyperlipidemia Status: Acute Assessment and Plan: Did she continue with atorvastatin Subjective Date/time seen: 09/17/22 15:49 09/17/2022 interval history: patient with complaints back pain is found to have spinal stenosis without neurogenic claudication, patient is seen by spine surgery service and recommended TLSO and patient has the brace and he is working with PT however today patient was dizzy and his blood pressure was soft and was unable to participate with PT, will give patient bolus of IV fluids 500cc, will hold losartan, will monitor and further recommendation to follow, his is present in the room. Review of Systems Review of Systems: All systems reviewed & are unremarkable except as noted in HPI and below Exam Narrative: elderly frail Patient is comfortable, NAD HEENT: eyes are clear and none icteric LUNGS: normal respiratory effort ABD: distended Lower extremities: no edema SKIN: nonjaundiced Neuro: grossly intact. Objective Data Vital Signs Vital Signs: Vital Signs - 24 hr 09/16/22 16:55 09/16/22 22:00 09/16/22 20:00 Temperature 97.9 F Pulse Rate 73 70 70 Respiratory Rate 20 18 18 Blood Pressure 109/71 97/59 L Pulse Oximetry 99 98 98 Oxygen Delivery Room Air 09/17/22 06:00 09/17/22 14:00 09/17/22 14:00 Temperature 98.5 F 97.4 F L 97.4 F L Pulse Rate 81 80 80 Respiratory Rate 20 18 18 Blood Pressure 147/101 H 123/83 123/83 Pulse Oximetry 96 97 97 Oxygen Delivery 09/17/22 14:05 Temperature Pulse Rate 103 H Respiratory Rate 18 Blood Pressure 135/91 H Pulse Oximetry 97 Oxygen Delivery Intake/Output Intake/Output: Intake & Output 09/14/22 09/15/22 09/16/22 09/17/22 23:59 23:59 23:59 23:59 Intake Total 1710 1110 2187 708 Output Total 650 1380 1450
[2022-09-17 16:45] LABS: Glucose Point of Care 120 mg/dl (65-105)
[2022-09-17 22:00] VITALS: BP 122/76; PULSE 73; RESP 16; TEMP 36; O2SAT 100
[2022-09-17 22:33] LABS: Glucose Point of Care 137 mg/dl (65-105)
[2022-09-18 06:00] VITALS: BP 134/91; PULSE 85; RESP 16; TEMP 36.1; O2SAT 99
[2022-09-18] MEDS: SERTRALINE HCL 50 MG TABLET PO (08:29)
[2022-09-18] MEDS: CHOLECALCIFEROL 1,000 UNITS TABLET 2000 UNITS PO (08:29)
[2022-09-18] MEDS: PIOGLITAZONE HCL 30 MG TABLET PO (08:29)
[2022-09-18] MEDS: DOCUSATE SODIUM 100 MG CAPSULE PO (08:29)
[2022-09-18] MEDS: ASPIRIN 81 MG CHEWABLE TABLET 162 MG PO (08:30)
[2022-09-18] MEDS: glipiZIDE 5 MG TABLET 10 MG PO (08:30)
[2022-09-18] MEDS: HYDROcodone/acetaminophen (*CRX) 7.5-325 MG TABLET 1 TAB PO (08:30)
[2022-09-18] MEDS: ATORVASTATIN 40 MG TABLET PO (08:30)
[2022-09-18 08:36] LABS: Glucose Point of Care 172 mg/dl (65-105)
[2022-09-18 10:20] VITALS: BP 137/89; PULSE 81; O2SAT 95
[2022-09-18 10:27] VITALS: BP 129/79; PULSE 94; O2SAT 97
[2022-09-18 10:32] VITALS: BP 91/70
[2022-09-18 12:08] LABS: Glucose Point of Care 181 mg/dl (65-105)
--- NOTE | 2022-09-18 12:10 | PM.DS ---
DS: Admitting Diagnosis Discharge Date 09/18/2022 Admitting Diagnosis back pain DS: Discharge Diagnosis Discharge Diagnosis (1) Chronic low back pain: Code(s): M54.5 - Low back pain; G89.29 - Other chronic pain Status: Acute Assessment and Plan: -continue pain control. -Flexeril appears to be helping -neurosurgery has been consulted. -patient needs TSLo back brace. -PT OT evaluation greatly be appreciated. -will likely need placement 09/17/2022 interval history: patient with complaints back pain is found to have spinal stenosis without neurogenic claudication, patient is seen by spine surgery service and recommended TLSO and patient has the brace and he is working with PT however today patient was dizzy and his blood pressure was soft and was unable to participate with PT, will give patient bolus of IV fluids 500cc, will hold losartan, will monitor and further recommendation to follow, his is present in the room. (2) Type 2 diabetes mellitus with stage 4 chronic kidney disease: Qualifiers: Diabetes mellitus intermediate accountant insulin use: without prison use Qualified Code(s): E11.22 - Type 2 diabetes mellitus with diabetic chronic kidney disease; N18.4 - Chronic kidney disease, stage 4 (severe) Code(s): E11.22 - Type 2 diabetes mellitus with diabetic chronic kidney disease; N18.4 - Chronic kidney disease, stage 4 (severe) Status: Acute Assessment and Plan: Accu-Cheks AC and HS check A1c. Sliding scale insulin with hypoglycemic protocol. -continue with glipizide -continue pioglitazone (3) Essential (primary) hypertension: Code(s): I10 - Essential (primary) hypertension Status: Acute Assessment and Plan: -continue losartan (4) Anxiety: Code(s): F41.9 - Anxiety disorder, unspecified Status: Acute Assessment and Plan: -continue sertraline (5) Chronic kidney disease, stage 3 unspecified: Code(s): N18.30 - Chronic kidney disease, stage 3 unspecified Status: Acute Assessment and Plan: -patient's creatinine is 2.1 today with a GFR of 30. His creatinine is 2.1 today is acid was 2.6. Avoid nephrotoxic medication if possible. (6) Mixed hyperlipidemia: Code(s): E78.2 - Mixed hyperlipidemia Status: Acute Assessment and Plan: Did she continue with atorvastatin DS: Summary Hospital Course Reason for hospitalization: Back pain Narrative: This is an 87-year-old male patient who lives with his .? The patient came to the emergency room with complaints of lower back pain.? This is chronic and he has had a history of lower back surgery.? His pain has been recurring for the last 2 weeks.? The pain is worse with movement.? The patient stated that he previously had a lower back belt and he was leaving it all the time.? And then when he took it off he felt worsening of the pain.? Patient is continent of bowel and bladder and is able to move all extremities.? The patient can ambulate some.? His pain radiates down his legs.? The patient was recently discharged from this hospital on 08/29/2022 please see discharge note.? Has a history of chronic renal failure and his creatinine is 2.1 today earlier this month that was 2.6.? Blood sugar 193.? He is negative for influenza A/B and COVID.? Patient was given morphine in the emergency room.? Under surgery has been consulted and the patient is being admitted to observation status on the date 09/12/2022. Hospital Course: patient with complaints back pain is found to have spinal stenosis without neurogenic claudication, patient is seen by spine surgery service and recommended TLSO and patient has the brace and he is working with PT however today patient was dizzy and his blood pressure was soft and was unable to participate with PT, will give patient bolus of IV fluids 500cc, will hold losartan, will monitor and further recommendation to follow, his is present in the room. today
[2022-09-18 13:47] LABS: EDCOVIDSCREEN Negative (Negative)
[2022-09-18 15:24] VITALS: BP 118/79; PULSE 78; RESP 16; TEMP 36.2; O2SAT 99
[2022-09-18 17:15] LABS: Glucose Point of Care 173 mg/dl (65-105)
== END 2022-09-18 17:40 | DRG 543 ==
LOC: ANHED 07:36 → ANH3MEDSUR 10:43
PROVIDERS: Nurse Practitioner; Admitting Provider Chiropractor; Emergency Provider Emergency Medicine; PCP Internal Medicine; Visit Provider Family Medicine
DX: M48.56XA Collapsed vertebra, not elsewhere classified, lumbar region, initial encounter for fracture (principal); N18.4 Chronic kidney disease, stage 4 (severe); M54.50 Low back pain, unspecified; M48.061 Spinal stenosis, lumbar region without neurogenic claudication; E11.22 Type 2 diabetes mellitus with diabetic chronic kidney disease; E78.2 Mixed hyperlipidemia; F41.9 Anxiety disorder, unspecified; G89.29 Other chronic pain; I12.9 Hypertensive chronic kidney disease with stage 1 through stage 4 chronic kidney disease, or unspecified chronic kidney disease; K21.9 Gastro-esophageal reflux disease without esophagitis; Z20.822 Contact with and (suspected) exposure to COVID-19; Z90.49 Acquired absence of other specified parts of digestive tract; Z79.82 Long term (current) use of aspirin; Z79.84 Long term (current) use of oral hypoglycemic drugs; Z28.21 Immunization not carried out because of patient refusal; Z85.828 Personal history of other malignant neoplasm of skin
CPT/HCPCS: 36415; 72100; 72131; 72148; 80053; 81001; 82948; 83036; 85025; 87426; 87636; 96374; 96376; 97162; 97165; 97530; 97535; 99285; A9270; C9803; G0378; J1815; J2270; J7040

== ENCOUNTER → 2022-10-29 11:24 | Outpatient (CLI) | payer MEDICARE, SELFPAY ==
--- NOTE | ~2022-10-29 | XR_ITS ---
Lumbosacral Spine: AP and lateral views Clinical History: Compression fracture COMPARISON: 09/16/2022 Findings: Stable mild compression fracture of L3 noted. Stable possible minimal anterior wedging defo rmities of L1 and L2. Stable facet joint degenerative change in the lumbar spine. The intervertebral disc spaces are preserved. The sacroiliac joints are normally outlined. Impression: Stable compression fracture of L3. Possible minimal anterior wedging deformities of L1 and L2, unchanged. Stable degenerative change. Reviewed, dictated and finalized at location M. Impression: Stable compression fracture of L3. Possible minimal anterior wedging deformities of L1 and L2, unchanged. Stable degenerative change.
== END ==
PROVIDERS: PCP Internal Medicine; Visit Provider Neurological Surgery
DX: S32.000D Wedge compression fracture of unspecified lumbar vertebra, subsequent encounter for fracture with routine healing (principal); X58.XXXD Exposure to other specified factors, subsequent encounter
CPT/HCPCS: 72100

== ENCOUNTER 2022-11-08 10:51 | Observation (INO) | payer MEDICARE, SELFPAY ==
[2022-11-08] VITALS (27 sets, daily range): BP systolic 97–175; BP diastolic 57–101; PULSE 69–95; RESP 7–20; TEMP 36.3–36.8; O2SAT 82–100; BMI 27.8
--- NOTE | ~2022-11-08 | CT_ITS ---
EXAMINATION: CT lumbar spine wo con DATE: 11/08/2022 12:06 INDICATION: Low back pain. TECHNIQUE: Computed tomography (CT) of the lumbar spine was performed without intravenous contrast. A utomated exposure control and iterative reconstruction technique were employed. The dose-length produ ct was 699.21 mGy-cm. COMPARISON: CT lumbar spine 09/12/22, MRI 09/12/2022, radiographs 10/29/2022 FINDINGS: There is 8 degrees dextrocurvature of lumbar spine. There is 2 mm anterolisthesis of L3 on L4 and 4 mm anterolisthesis of L4 on L5. There is 5 mm retrolisthesis of L5 on S1. There is a carolynn eunice fracture of L1 with 1/5 loss of height. There is a healing burst fracture of L3 with 2/5 loss of height centrally. There is a subacute compression fracture of superior endplate of L4 with less than 1/5 loss of height. There is mild chronic anterior wedging of T11 and T12 vertebral bodies. There is mildly decreased disc height at L1-L2 and L2-L3 and severely decreased disc height at L3-L4 and L5-S 1. The following disc levels are specifically discussed: L1-L2: The disc is bulging. There is severe right and moderate left facet joint osteoarthritis. There is moderate bilateral neural foraminal stenosis. There is mild central canal stenosis. L2-L3: The disc is bulging. There is moderate right and mild left facet joint osteoarthritis. There i s moderate bilateral neural foraminal stenosis. There is mild central canal stenosis. L3-L4: The disc is bulging. There is severe bilateral facet joint osteoarthritis. There is moderate b ilateral neural foraminal stenosis. There is severe central canal stenosis. L4-L5: The disc is bulging. There is severe bilateral facet joint osteoarthritis. There is moderate b ilateral neural foraminal stenosis. There is mild central canal stenosis. There is moderate stenosis of the lateral recesses. L5-S1: The disc is bulging. There is severe bilateral facet joint osteoarthritis. There is moderate b ilateral neural foraminal stenosis. There is mild central canal stenosis. IMPRESSION: 1. Acute/subacute compression fracture of L1, worsened from 10/29/2022. 2. Subacute L3 burst fracture, worsened from 09/12/2022. 3. Acute L4 compression fracture, stable from 09/12/2022. 4. Severe lumbar spondylosis. Reviewed, dictated and finalized at location E.
--- NOTE | 2022-11-08 11:26 | ED.BACK ---
HPI - Back Pain/Injury General Chief Complaint: Back Pain/Injury Stated Complaint: lower back pain - chronic Time Seen by Provider: 11/08/22 11:09 Source: patient and family Mode of arrival: ambulatory Limitations: no limitations History of Present Illness HPI Narrative: Patient is 87 years old white male came to the emergency room by private car with his who is telling me that patient could not sleep all night long because of severe intermittent lower back pain. Currently patient is asymptomatic as long as laying down in bed. She is telling me that patient was started on Augmentin 9 days ago for urinary tract infection and she does not believe his symptoms are resolved because he still have frequent urination, poor appetite and been losing weight. Currently patient is asymptomatic and is telling me that as long as laying down in bed, he have no problem. He denies any fever, chills, nausea, vomiting, abdominal pain, chest pain, shortness of breath, diarrhea or constipation or radiation of the lower back pain. He denies focal neurodeficit. Patient is running out of hydrocodone, also unable to see his pain management physician. Related Data Home Medications Medication Instructions Recorded Confirmed cholecalciferol (vitamin D3) 50 50 mcg PO DAILY 03/05/20 09/12/22 mcg (2,000 unit) capsule acetaminophen 325 mg tablet 325 mg PO Q6H PRN Pain 07/08/21 09/12/22 (Tylenol) sertraline 50 mg tablet 50 mg PO DAILY 08/28/22 09/12/22 atorvastatin 40 mg tablet 40 mg PO DAILY 09/12/22 09/12/22 hydrocodone 5 mg-acetaminophen 325 1 tablet PO Q8H PRN 11/01/22 mg tablet Allergies Allergy/AdvReac Type Severity Reaction Status Date / Time No Known Allergies Allergy Verified 11/08/22 11:41 Review of Systems Review of Systems: All systems reviewed & are unremarkable except as noted in HPI and below PMFSH Past Medical History Medical History Actinic keratosis Anxiety Basal cell carcinoma Essential (primary) hypertension Gastroesophageal reflux disease Mixed hyperlipidemia Stage 4 chronic kidney disease Type 2 diabetes mellitus Surgical History Surgical History History of basal cell carcinoma excision History of laparoscopic cholecystectomy (07/20/00) History of lumbar laminectomy for spinal cord decompression History of removal of pigmented skin lesion Family History Family History Father Family history of pancreatic cancer Sibling Family history of diabetes mellitus in first degree relative Family history of pancreatic cancer Social History Social History Social History: The patient is and lives with his . He has no children. He is retired from [employer]. Surrogate medical decision maker: Naheed Green, spouse. Code status: Full code. Smoking status: Never smoker Second hand tobacco smoke exposure: No Alcohol intake: never Substance use: never Substance use type: does not use Lack of Transportation: No Lack of Food: Never True Current Housing: I Have Housing Concerned About Future Housing: No Difficulty Paying Gas/Electric Bills: No Difficulty Paying for Meds: No Currently Unemployed: No Education: High School Diploma/GED Difficulty w/ Childcare or Family Care: No Living arrangements: with family Occupation/Education: retired Spiritual care concerns: No Exam Narrative: General appearance: Well-developed, well-nourished, not in any pain or distress Skin: Normal color Head: Normocephalic, nontraumatic Eyes: Clear conjunctiva ENT: Oropharynx normal, ears normal, nose normal Neck: Supple, nontender Chest and respiratory: Airway patent, no respiratory distress, no accessory muscle use Heart: Regular rate/rhythm Abdomen: Soft, nontender, no organom
[2022-11-08] MEDS: SODIUM CHLORIDE 0.9% IV 1,000 ML 999 ML IV CONT (11:47)
[2022-11-08 11:50] LABS: Basophils Absolute Auto 0.1 K/mm3 (0.0-0.1); Basophils Percent Auto 0.8 % (0.2-1.2); Eosinophils Absolute Auto 0.7 K/mm3 (0-0.3); Hematocrit 41.7 % (42.0-52.0); Immature Granulocyte Absolute 0.02 K/mm3 (0.00-0.031); Immature Granulocyte Percent A 0.2 % (0-0.5); Lymphocytes Absolute Auto 2.26 K/mm3 (0.9-3.2); Lymphocytes Percent Auto 27.3 % (18.3-44.2); Mean Corpuscular HGB Conc 31.2 g/dl (32-36); Mean Corpuscular Hemoglobin 31.2 pg (26-34); Mean Platelet Volume 10.6 fl (7.4-10.4); Monocytes Absolute Auto 0.9 K/mm3 (0.1-0.6); Neutrophils Absolute Auto 4.4 K/mm3 (1.3-6.7); Neutrophils Percent Auto 52.7 % (45.5-73.1); Platelet Count Result 162 k/mm3 (150-375); Red Blood Count 4.17 M/mm3 (4.6-6.20); Red Cell Distribution Width 13.9 % (11.5-14.5); White Blood Count 8.3 K/mm3 (4.5-10.0)
[2022-11-08 11:58] LABS: Appearance Urine Clear (Clear); Bacteria Urine None Seen /hpf; Bilirubin Urine Negative (Negative); Blood Urine 1+ (Negative); Color Urine Yellow (Yellow); Glucose Urine UA 1+ mg/dL (Negative); Ketones Urine Negative (Negative); Leukocyte Esterase Ur Negative LEU/UL (Negative); Nitrate Urine Negative (Negative); Protein Urine 3+ mg/dL (Negative); RBC Urine 0-2 /hpf (0-2); Specific Grav Ur 1.019 (1.001-1.035); Squamous Epithelial Cell Urine None seen /hpf (Few); Urobilinogen Urine 0.2 mg/dL (<2.0); WBC Urine 0-5 /hpf; pH Urine 6.5 (5.0-9.0)
[2022-11-08 12:10] LABS: Alanine Aminotransferase 20 U/L (6-50); Albumin Level 3.7 g/dL (3.5-5.1); Alkaline Phosphatase 95 U/L (38-126); Anion Gap 9 mmol/L (8-16); Aspartate Amino Transferase 31 U/L (17-59); Bilirubin,Total 0.7 mg/dL (0.2-1.3); Blood Urea Nitrogen 31 mg/dL (9-20); Calcium 8.4 mg/dL (8.4-10.2); Carbon Dioxide 26 mmol/L (22-30); Chloride 104 mmol/L (98-107); Estimated Glomerular Filt Rate 36; Glucose 131 mg/dL (65-110); Sodium 139 mmol/L (137-145)
[2022-11-08 12:11] LABS: Add Urine Microscopic? YES
[2022-11-08] MEDS: ONDANSETRON INJ 4 MG/2 ML VIAL IV PUSH (14:19)
[2022-11-08] MEDS: HYDROmorphone HCL INJ (*CRX) 1 MG/ML SYR 0.5 MG IV PUSH ×2 (14:21→17:59)
--- NOTE | 2022-11-08 14:52 | PM.IMHP ---
H&P: HPI History of Present Illness Date/Time: 11/08/22 14:52 Chief Complaint: Back pain Narrative: This is an 87-year-old male patient who came to the emergency room via private car with his . The patient has a history of compression fracture of L1 and L3 burst fracture, acute L4 compression fracture. The patient has been to see the neurosurgeon in the past and was given a back brace. The patient stated he is not able to wear the back brace. The patient has not been able to get out of bed over the past several days. The patient was given a limited amount of [place] in the patient's was trying to be sparing with the narcotics. The patient had been awake all night with the lower back pain discomfort. He could not sleep all night. The patient stated as long as he is lying in bed he does not have the pain but any movement or attempting to get up out of bed causes him worse discomfort. The patient had been on Augmentin 9 days ago for urinary tract infection and feels that those symptoms have resolved. The patient no longer has those symptoms of urinary tract infection. The patient stated that he is running out of hydrocodone and has not been able to see the pain management physician as of yet. The patient had a lumbar spine CT which was read as the following1. Acute/subacute compression fracture of L1, worsened from 10/29/2022. 2. Subacute L3 burst fracture, worsened from 09/12/2022. 3. Acute L4 compression fracture, stable from 09/12/2022. 4. Severe lumbar spondylosis. H&H 13.0 and 41.7. His creatinine is 1.8 with a baseline anywhere from 2.1-2.4.. The patient was given IV fluids, Dilaudid and Zofran in the emergency room. The patient is being admitted to observation status on 11/08/2022. Review of Systems Review of Systems: All systems reviewed & are unremarkable except as noted in HPI and below Constitutional: Constitutional: Reports as per HPI and Reports no additional constitutional complaints Eyes: Eyes: Reports as per HPI and Reports no additional eye complaints ENT: Reports system reviewed and no additional complaints, except as documented and Reports Normal hearing present Cardiovascular: Cardiovascular: Reports no additional cardiovascular complaints Respiratory: Respiratory: Reports no additional respiratory complaints and Reports no additional respiratory complaints Gastrointestinal: Gastrointestinal: Reports as per HPI and Reports no additional gastrointestinal complaints Musculoskeletal: Musculoskeletal: Reports no additional musculoskeletal complaints Integumentary/Breasts: Skin/Breast: Reports system reviewed and no additional complaints, except as docu and Reports as per HPI Neurologic: Reports system reviewed and no additional complaints, except as documented, Reports as per HPI and Reports Normal hearing present Psychiatric: Psychiatric: Reports no additional psychiatric complaints and Reports as per HPI Endocrine: Endocrine: Reports no additional endocrine complaints Hematologic/Lymphatic: Hematologic/Lymphatic: Reports no additional hematologic/lymphatic complaints Allergic/Immunologic: Allergic/Immunologic: Reports no additional allergic/immunologic complaints [facility] Past Medical History Medical History Actinic keratosis Anxiety Basal cell carcinoma Essential (primary) hypertension Gastroesophageal reflux disease Mixed hyperlipidemia Stage 4 chronic kidney disease Type 2 diabetes mellitus Surgical History Surgical History History of basal cell carcinoma excision History of laparoscopic cholecystectomy (03/05/00) History of lumbar laminectomy for spinal cord decompression History of removal of pigmented skin lesion Family History Family History Father Family history of pancreatic cancer Sibling Family history of diabetes mellitus
--- NOTE | 2022-11-08 15:40 | ADMGEN ---
This patient, Denilson Green, was admitted to Medical Room 254-01. Patient/family oriented to hospital policies and general routines including ID bracelet, bed and alarms, visiting hours, pain management, procedures, bathroom and other care routines, personal items, smoking policy, room service/diet, and visiting hours. Information on how to activate the Rapid Response Team has been discussed. Patient/Family are encouraged to report perceived risks to care and to ask questions if they do not understand what they are told or what they should do.
[2022-11-08] MEDS: SODIUM CHLORIDE 0.9% IV 1,000 ML 75 ML IV CONT (16:33)
[2022-11-08] MEDS: HYDROcodone/acetaminophen (*CRX) 5-325 MG TABLET 1 TAB PO (21:23)
[2022-11-08] MEDS: DOCUSATE SODIUM 100 MG CAPSULE PO (21:30)
[2022-11-08 21:37] LABS: Glucose Point of Care 120 mg/dl (65-105)
[2022-11-09] VITALS (7 sets, daily range): BP systolic 124–153; BP diastolic 69–92; PULSE 69–84; RESP 16–20; TEMP 36.3–37.1; O2SAT 93–100
--- NOTE | 2022-11-09 00:32 | PC.NURSE ---
[address] notified patient exhibiting some new confusion and became severely agitated after being informed his ordered activity level is bedrest, patient briefly became physically combative. Order received for 1mg Ativan Qhr for agitation, staff was able to calm patient and no dose was required to de-escalate. notified of situation at time of event 2200.
[2022-11-09] MEDS: CYCLOBENZAPRINE HCL 5 MG TABLET PO (02:11)
--- NOTE | 2022-11-09 02:42 | PC.NURSE ---
Addendum entered by Michele Griffith RN 11/09/22 03:45: Toradol did not offer significant relief per pt, Dr majano notified and ordered to give PRN hydrocodone early at this time. Addendum entered by Michele Griffith RN 11/09/22 02:50: Dr. Majano notified patient haivng severe pain and is unable to receive pain pill until 0530. Pt has dilaudid available however exhibited confusion/aggression several hours after administration. One time Toradol IV ordered, provider notified of contraindications, ok to give one time. Original Note: Provider notified of patient kidney function, ok to give one time dose.
[2022-11-09] MEDS: KETOROLAC 30 MG/ML VIAL (*BKC) IV PUSH (02:47)
[2022-11-09] MEDS: HYDROcodone/acetaminophen (*CRX) 5-325 MG TABLET 1 TAB PO (03:47)
[2022-11-09 05:25] LABS: Basophils Absolute Auto 0.1 K/mm3 (0.0-0.1); Basophils Percent Auto 0.7 % (0.2-1.2); Eosinophils Absolute Auto 0.7 K/mm3 (0-0.3); Eosinophils Percent Auto 9.9 % (0-4.4); Hematocrit 38.6 % (42.0-52.0); Immature Granulocyte Absolute 0.03 K/mm3 (0.00-0.031); Immature Granulocyte Percent A 0.4 % (0-0.5); Lymphocytes Absolute Auto 2.73 K/mm3 (0.9-3.2); Lymphocytes Percent Auto 39.7 % (18.3-44.2); Mean Corpuscular HGB Conc 31.1 g/dl (32-36); Mean Corpuscular Volume 102.9 fl (80-100); Mean Platelet Volume 10.9 fl (7.4-10.4); Monocytes Absolute Auto 0.9 K/mm3 (0.1-0.6); Monocytes Percent Auto 12.4 % (2.6-8.5); Neutrophils Absolute Auto 2.5 K/mm3 (1.3-6.7); Neutrophils Percent Auto 36.9 % (45.5-73.1); Platelet Count Result 142 k/mm3 (150-375); Red Blood Count 3.75 M/mm3 (4.6-6.20); Red Cell Distribution Width 14.1 % (11.5-14.5); White Blood Count 6.9 K/mm3 (4.5-10.0)
[2022-11-09 05:34] LABS: Lactic Acid Reflex 0.7 mmol/L (0.7-2.0)
[2022-11-09 05:45] LABS: Alanine Aminotransferase 17 U/L (6-50); Albumin Level 3.3 g/dL (3.5-5.1); Alkaline Phosphatase 89 U/L (38-126); Anion Gap 3 mmol/L (8-16); Aspartate Amino Transferase 25 U/L (17-59); Bilirubin,Total 0.6 mg/dL (0.2-1.3); Blood Urea Nitrogen 25 mg/dL (9-20); CRP < 0.5 mg/dL (<1.0); Calcium 8.1 mg/dL (8.4-10.2); Carbon Dioxide 27 mmol/L (22-30); Chloride 107 mmol/L (98-107); Estimated CRCL calculation 30 ml/min; Estimated Glomerular Filt Rate 38; Glucose 94 mg/dL (65-110); Potassium 4.3 mmol/L (3.4-5.0); Sodium 137 mmol/L (137-145)
[2022-11-09 06:45] LABS: Thyroid Stimulating Hormone Reflex 0.838 uIU/mL (0.465-4.68)
[2022-11-09 08:35] LABS: Glucose Point of Care 90 mg/dl (65-105)
[2022-11-09] MEDS: SODIUM CHLORIDE 0.9% IV 1,000 ML 75 ML IV CONT ×2 (08:56→22:20)
[2022-11-09] MEDS: ASPIRIN 81 MG CHEWABLE TABLET 162 MG PO (08:57)
[2022-11-09] MEDS: DOCUSATE SODIUM 100 MG CAPSULE PO ×2 (08:57→20:33)
[2022-11-09] MEDS: SERTRALINE HCL 50 MG TABLET PO (08:58)
[2022-11-09] MEDS: PIOGLITAZONE HCL 30 MG TABLET PO (08:58)
[2022-11-09] MEDS: ATORVASTATIN 40 MG TABLET PO (08:58)
[2022-11-09] MEDS: CHOLECALCIFEROL 1,000 UNITS TABLET 2000 UNITS PO (08:59)
[2022-11-09] MEDS: LIDOCAINE 5% PATCH 3 PATCH TRANSDERM (08:59)
[2022-11-09] MEDS: HYDROmorphone HCL INJ (*CRX) 1 MG/ML SYR 0.5 MG IV PUSH (09:00)
[2022-11-09 11:44] LABS: Hemoglobin A1C 7.4 % (<5.7)
[2022-11-09 12:00] LABS: Glucose Point of Care 231 mg/dl (65-105)
[2022-11-09] MEDS: INSULIN ASPART (*BKC) 100 UNITS/ML SUB-Q (12:17)
--- NOTE | 2022-11-09 13:37 | WPDNEUROSGCN ---
Assessment and Plan Assessment and plan (1) Compression fracture: Status: Acute (2) Chronic lower back pain: Code(s): M54.50 - Low back pain, unspecified; G89.29 - Other chronic pain Status: Acute Plan Mr. Green is an 87-year-old male with a known history of an L3 compression fracture sustained in August who presents with intractable back pain and evidence of new minor compression fractures at L1 and L4. He does have some further height loss of the known fracture at L3 without kyphosis or retropulsion. I am concerned that his overall bone quality/health is poor, so I would recommend evaluating this as an outpatient in order to maximize his bone health. I will contact my office tomorrow about the referral to [facility] for the kyphoplasty as I believe this will help his pain quite a bit. In the meantime, I would like for him to have an LSO or corset-type brace to see if this will provide more support and will be easier for him to apply compared to the brace he has at home. Regarding his lumbar stenosis, I am monitoring him closely for this. Given that he has good strength and sensation in his legs, I do not recommend surgical intervention at this time. I will continue to follow him as an outpatient and will see how much benefit he gets from the kyphoplasty with respect to the occasional radicular leg pain. Plan: -Recommend LSO or corset-type brace, to be worn when sitting and out of bed. He can wear this when lying in bed if it provides him more comfort -I will contact my office about ensuring the referral for kyphoplasty at [facility] has been sent -Recommend discussing workup/treatment for possible osteoporosis through PCP -Follow up with me as scheduled Review of Systems Review of Systems: All systems reviewed & are unremarkable except as noted in HPI and below PMFSH Past Medical History Medical History Actinic keratosis Anxiety Basal cell carcinoma Essential (primary) hypertension Gastroesophageal reflux disease Mixed hyperlipidemia Stage 4 chronic kidney disease Type 2 diabetes mellitus Surgical History Surgical History History of basal cell carcinoma excision History of laparoscopic cholecystectomy (03/05/00) History of lumbar laminectomy for spinal cord decompression History of removal of pigmented skin lesion Family History Family History Father Family history of pancreatic cancer Sibling Family history of diabetes mellitus in first degree relative Family history of pancreatic cancer Social History Social History Social History: The patient is and lives with his . He has no children. He is retired from [employer]. Surrogate medical decision maker: Naheed Green, spouse. Code status: Full code. Smoking status: Never smoker Second hand tobacco smoke exposure: No Alcohol intake: never Substance use: never Substance use type: does not use Lack of Transportation: No Lack of Food: Never True Current Housing: I Have Housing Concerned About Future Housing: No Difficulty Paying Gas/Electric Bills: No Difficulty Paying for Meds: No Currently Unemployed: No Education: High School Diploma/GED Difficulty w/ Childcare or Family Care: No Living arrangements: with family Occupation/Education: retired Spiritual care concerns: No Meds Home Medications and Allergies Home Medications Medication Instructions Recorded Confirmed Type cholecalciferol (vitamin D3) 50 50 mcg PO DAILY 03/05/20 11/08/22 History mcg (2,000 unit) capsule lancets (Lancets, Super Thin) #100 ea 05/02/20 11/08/22 Rx acetaminophen 325 mg tablet 325 mg PO Q6H PRN Pain 07/08/21 11/08/22 History (Tylenol) glipizide 10 mg tablet 10 mg PO DAILY #90 tabs
[2022-11-09] MEDS: HYDROcodone/acetaminophen (*CRX) 10-325 MG TABLET 1 TAB PO ×2 (14:50→20:33)
[2022-11-09 16:42] LABS: Glucose Point of Care 113 mg/dl (65-105)
[2022-11-09 20:33] LABS: Glucose Point of Care 146 mg/dl (65-105)
[2022-11-10] VITALS: BP 146/80; PULSE 75; RESP 16; TEMP 36.5; O2SAT 98
[2022-11-10 04:00] VITALS: BP 152/69; PULSE 77; RESP 16; TEMP 36.9; O2SAT 100
[2022-11-10 08:51] LABS: Glucose Point of Care 101 mg/dl (65-105)
[2022-11-10 09:00] VITALS: RESP 16; O2SAT 95
[2022-11-10] MEDS: glipiZIDE 5 MG TABLET 10 MG PO (09:00)
[2022-11-10] MEDS: ASPIRIN 81 MG CHEWABLE TABLET 162 MG PO (09:00)
[2022-11-10] MEDS: ATORVASTATIN 40 MG TABLET PO (09:00)
[2022-11-10] MEDS: CHOLECALCIFEROL 1,000 UNITS TABLET 2000 UNITS PO (09:00)
[2022-11-10] MEDS: SERTRALINE HCL 50 MG TABLET PO (09:00)
[2022-11-10] MEDS: PIOGLITAZONE HCL 30 MG TABLET PO (09:00)
[2022-11-10] MEDS: LIDOCAINE 5% PATCH 3 PATCH TRANSDERM (09:15)
[2022-11-10 09:19] VITALS: BP 147/63; PULSE 98; RESP 16; TEMP 36.4; O2SAT 95
[2022-11-10] MEDS: HYDROcodone/acetaminophen (*CRX) 10-325 MG TABLET 1 TAB PO ×2 (10:34→14:18)
--- NOTE | 2022-11-10 11:47 | PM.DS ---
DS: Admitting Diagnosis Discharge Date November 10, 2022 Admitting Diagnosis Acute lower back pain secondary to lumbar compression fracture. DS: Discharge Diagnosis Discharge Diagnosis (1) Compression fracture: Status: Acute Assessment and Plan: . Acute/subacute compression fracture of L1, worsened from 10/29/2022. 2. Subacute L3 burst fracture, worsened from 09/12/2022. 3. Acute L4 compression fracture, stable from 09/12/2022. 4. Severe lumbar spondylos The patient has not yet made it to pain management. The patient has attempted to use a back brace when he gets up the patient has been in bed for several days. His pain is worse when he moves around. Neurosurgery has been consulted. Continue with analgesic (2) Type 2 diabetes mellitus with stage 4 chronic kidney disease: Qualifiers: Diabetes mellitus alf insulin use: without alf use Qualified Code(s): E11.22 - Type 2 diabetes mellitus with diabetic chronic kidney disease; N18.4 - Chronic kidney disease, stage 4 (severe) Code(s): E11.22 - Type 2 diabetes mellitus with diabetic chronic kidney disease; N18.4 - Chronic kidney disease, stage 4 (severe) Status: Acute Assessment and Plan: Accu-Cheks AC and HS with sliding scale insulin and hypoglycemic protocol Check A1c Continue active Continue with Glucotrol (3) Mixed hyperlipidemia: Code(s): E78.2 - Mixed hyperlipidemia Status: Acute Assessment and Plan: Continue atorvastatin (4) Essential (primary) hypertension: Code(s): I10 - Essential (primary) hypertension Status: Acute Assessment and Plan: The patient has a history of hypertension and is no longer on medication because his blood pressure had dropped. Please continue to monitor. His blood pressure may be elevated due to discomfort I will place him on p.r.n. hydralazine with parameters. (5) Anxiety: Code(s): F41.9 - Anxiety disorder, unspecified Status: Acute Assessment and Plan: Continue with sertraline (6) Chronic low back pain: Code(s): M54.5 - Low back pain; G89.29 - Other chronic pain Status: Acute Assessment and Plan: The patient will need to follow-up with pain management outpatient. (7) CKD (chronic kidney disease): Code(s): N18.9 - Chronic kidney disease, unspecified Status: Acute Assessment and Plan: The patient is at his baseline please continue to monitor. DS: Summary Hospital Course Hospital Course: Patient is an 87-year-old gentle with osteoporosis came in with to lumbar spine compression fracture. This was noted on a prior admission proximally to 3 weeks ago. Patient does have an appointment with pain management however he ran out of pain medications and had to be admitted to the hospital. Patient will be discharged on [place] for pain. Appreciate neuro surgical consultation during hospitalization otherwise patient can be discharged. Patient were back brace at home. Time Spent with Patient Time attestation: Total time spent providing and/or coordinating discharge services: Exam Const: General: cooperative, healthy appearing, comfortable, no acute distress, well developed, alert, awake, Physically active, average body habitus and well nourished Nutritional Appearance: average body habitus and well nourished Orientation/consciousness: oriented to person, oriented to place, oriented to time and patient oriented x3 Limitations: no limitations HENMT: Head: normal to inspection, No palpable skull fracture present, normocephalic and atraumatic Ears: hearing grossly normal bilaterally and external ears normal Face/Nose/Sinus: Normal external nose present and Normal nares present Eyes: General: appearance normal, both eyes and all related structures Alignment and Position: alignment normal Periorbital: periorbital findings normal Eyelids: eyelids normal Sclera: sclerae normal Pupils: Equal, round and reactive pupil
[2022-11-10 12:05] LABS: Glucose Point of Care 123 mg/dl (65-105)
[2022-11-10 14:00] VITALS: BP 100/64; PULSE 83; RESP 16; TEMP 36.3; O2SAT 94
[2022-11-10 14:02] VITALS: BP 100/64; PULSE 83; RESP 16; TEMP 36.3; O2SAT 94
== END 2022-11-10 14:55 | disposition home health service (06) ==
LOC: ANHED 14:42 → ANH2MED 15:00
PROVIDERS: Nurse Practitioner; Admitting Provider Chiropractor; Emergency Provider Emergency Medicine; PCP Internal Medicine; Visit Provider Chiropractor
DX: S32.010A Wedge compression fracture of first lumbar vertebra, initial encounter for closed fracture (principal); S32.031A Stable burst fracture of third lumbar vertebra, initial encounter for closed fracture; M47.816 Spondylosis without myelopathy or radiculopathy, lumbar region; R35.0 Frequency of micturition; R63.0 Anorexia; Z68.27 Body mass index [BMI] 27.0-27.9, adult; F41.9 Anxiety disorder, unspecified; K21.9 Gastro-esophageal reflux disease without esophagitis; E78.2 Mixed hyperlipidemia; D64.9 Anemia, unspecified; I12.9 Hypertensive chronic kidney disease with stage 1 through stage 4 chronic kidney disease, or unspecified chronic kidney disease; E11.22 Type 2 diabetes mellitus with diabetic chronic kidney disease; N18.4 Chronic kidney disease, stage 4 (severe); Z79.891 Long term (current) use of opiate analgesic; Z79.82 Long term (current) use of aspirin; Z79.84 Long term (current) use of oral hypoglycemic drugs; Z79.1 Long term (current) use of non-steroidal anti-inflammatories (NSAID); Z79.899 Other long term (current) drug therapy; Z83.3 Family history of diabetes mellitus
CPT/HCPCS: 36415; 72131; 80053; 81001; 82948; 83036; 83605; 83735; 84443; 85025; 86140; 96361; 96374; 96375; 96376; 99285; A9270; G0378; J1170; J1815; J1885; J2405; J7030

== ENCOUNTER → 2022-11-19 09:30 | Outpatient (CLI) | payer MEDICARE, SELFPAY ==
--- NOTE | ~2022-11-19 | MR_ITS ---
EXAMINATION: MR lumbar spine wo con DATE: 11/19/2022 10:30 INDICATION: Other low back pain. TECHNIQUE: Magnetic resonance imaging (MRI) of the lumbar spine was performed without intravenous con trast. Sequences included sagittal T2-weighted FSE, sagittal T2-weighted FS FSE, sagittal T1-weighted FSE, and axial T2-weighted FSE. COMPARISON: Lumbar spine MRI 09/12/2022, CT 11/08/2022 FINDINGS: There is 10 degrees dextroscoliosis of lumbar spine. There is a compression fracture of inf erior endplate of L1 with 1/5 loss of height and bone marrow edema. There is 3 mm retrolisthesis of L 1 on L2. There is a burst fracture of inferior endplate of L3 with 2/5 loss of height and bone marrow edema. There is 3 mm anterolisthesis of L3 on L4. There is a compression fracture of superior endpla te of L4 with less than 1/5 loss of height and bone marrow edema. There is 3 mm retrolisthesis of L5 on S1. There is moderately decreased disc height at L1-L2, L2-L3, and L3-L4 and severely decreased di sc height at L5-S1. The distal spinal cord signal intensity is normal. The conus medullaris is at T12 -L1. The following disc levels are specifically discussed: L1-L2: The disc is bulging as an annular fissure. There is mild bilateral facet joint osteoarthritis. There is moderate bilateral neural foraminal stenosis. There is mild central canal stenosis. There i s posterior decompression. L2-L3: The disc is bulging and has an annular fissure. There is moderate right and mild left facet marco antonio int osteoarthritis. There is moderate bilateral neural foraminal stenosis. There is mild central caleb l stenosis. There is posterior decompression. L3-L4: The disc is bulging and has an annular fissure. There is severe bilateral facet joint osteoart hritis. There is moderate right and severe left neural foraminal stenosis. There is severe central ca nal stenosis. L4-L5: The disc is bulging. There is severe bilateral facet joint osteoarthritis. There is moderate b ilateral neural foraminal stenosis. There is mild central canal stenosis. There is severe stenosis of the lateral recess. There is posterior decompression. L5-S1: The disc is bulging and has an annular fissure. There is moderate bilateral facet joint osteoa rthritis. There is moderate bilateral neural foraminal stenosis. There is mild central canal stenosis . IMPRESSION: 1. Subacute L1 compression fracture, stable from 11/08/2022. 2. Subacute L3 burst fracture, stable from 11/08/22. 3. Subacute L4 compression fracture, stable from 09/12/2022. 4. Severe lumbar spondylosis. 5. Lumbar dextroscoliosis. Reviewed, dictated and finalized at location A.
== END ==
PROVIDERS: PCP Internal Medicine; Visit Provider Nurse Practitioner Family
DX: S32.031A Stable burst fracture of third lumbar vertebra, initial encounter for closed fracture (principal); M48.56XA Collapsed vertebra, not elsewhere classified, lumbar region, initial encounter for fracture; M47.816 Spondylosis without myelopathy or radiculopathy, lumbar region; M41.9 Scoliosis, unspecified
CPT/HCPCS: 72148

== ENCOUNTER 2023-01-30 11:40 | Emergency (ER) | payer MEDICARE, SELFPAY ==
[2023-01-30] VITALS (7 sets, daily range): BP systolic 124–195; BP diastolic 97–135; PULSE 79–89; RESP 13–24; TEMP 36.7; O2SAT 95–100
--- NOTE | 2023-01-30 12:04 | PC.NURSE ---
poison control called and spoke with AREN Villa. She states that pt is under the toxic level of tylenol but is over the toxic level for hydrocodone. Watch for CHIP MUCKER depression and respiratory depression. Narcan gave be given as needed.
--- NOTE | 2023-01-30 12:05 | ECG_ITS ---
Measurements Intervals [place] Rate: 88 P: 49 DE: 251 QRS: 217 QRSD: 147 T: -6 QT: 376 QTc: 457 Interpretive Statements SINUS RHYTHM WITH FIRST DEGREE AV BLOCK MARKED RIGHT AXIS DEVIATION [QRS AXIS > 100] RIGHT BUNDLE BRANCH BLOCK [120+ ms QRS DURATION, UPRIGHT V1, 40+ ms S IN I/aVL/V4/V5/V6] COMPARED TO ECG 08/28/2022 10:03:29 NO SIGNIFICANT CHANGES Electronically Signed On 01-30-2023 13:37:04 CDT by Les Lindsey M.D.
[2023-01-30 12:39] LABS: Basophils Absolute Auto 0.1 K/mm3 (0.0-0.1); Basophils Percent Auto 0.6 % (0.2-1.2); Eosinophils Absolute Auto 0.8 K/mm3 (0-0.3); Eosinophils Percent Auto 7.4 % (0-4.4); Hemoglobin 14.1 g/dL (14.0-18.0); Immature Granulocyte Absolute 0.04 K/mm3 (0.00-0.031); Immature Granulocyte Percent A 0.4 % (0-0.5); Immature Platelet Fraction Pct 6.3 % (0.9-11.2); Lymphocytes Absolute Auto 4.36 K/mm3 (0.9-3.2); Lymphocytes Percent Auto 41.9 % (18.3-44.2); Mean Corpuscular Hemoglobin 31.9 pg (26-34); Mean Corpuscular Volume 106.3 fl (80-100); Mean Platelet Volume 11.5 fl (7.4-10.4); Monocytes Absolute Auto 0.8 K/mm3 (0.1-0.6); Monocytes Percent Auto 7.9 % (2.6-8.5); Neutrophils Absolute Auto 4.4 K/mm3 (1.3-6.7); Neutrophils Percent Auto 41.8 % (45.5-73.1); Platelet Count Result 141 k/mm3 (150-375); Red Blood Count 4.42 M/mm3 (4.6-6.20); Red Cell Distribution Width 13.8 % (11.5-14.5); White Blood Count 10.4 K/mm3 (4.5-10.0)
[2023-01-30 12:49] LABS: Partial Thromboplastin Time 30.3 SECONDS (22.3-36.8); Prothrombin Time 13.3 Seconds (11.1-14.7)
[2023-01-30 12:50] LABS: Acetaminophen 21 ug/mL (10-30); Ethanol < 10 mg/dL (<10); Salicylate < 1.0 mg/dL (2-20)
[2023-01-30 12:51] LABS: Ammonia < 9 umol/L (9-30)
[2023-01-30 12:52] LABS: Alanine Aminotransferase 25 U/L (6-50); Albumin Level 4.3 g/dL (3.5-5.1); Alkaline Phosphatase 74 U/L (38-126); Anion Gap 11 mmol/L (8-16); Aspartate Amino Transferase 31 U/L (17-59); Bilirubin,Total 0.3 mg/dL (0.2-1.3); Blood Urea Nitrogen 40 mg/dL (9-20); Calcium 8.4 mg/dL (8.4-10.2); Carbon Dioxide 26 mmol/L (22-30); Chloride 106 mmol/L (98-107); Estimated CRCL calculation 25 ml/min; Estimated Glomerular Filt Rate 29; Glucose 190 mg/dL (65-110); Potassium 4.3 mmol/L (3.4-5.0); Sodium 143 mmol/L (137-145)
[2023-01-30 12:54] LABS: Magnesium 2.1 mg/dL (1.6-2.3)
[2023-01-30 12:59] LABS: Add Urine Microscopic? YES; Appearance Urine Clear (Clear); Bacteria Urine None Seen /hpf; Bilirubin Urine Negative (Negative); Blood Urine 1+ (Negative); Color Urine Yellow (Yellow); Glucose Urine UA 2+ mg/dL (Negative); Ketones Urine Negative (Negative); Leukocyte Esterase Ur Negative LEU/UL (Negative); Need Manual Microscopic Reviewed; Nitrate Urine Negative (Negative); Protein Urine 3+ mg/dL (Negative); Specific Grav Ur 1.021 (1.001-1.035); Squamous Epithelial Cell Urine None seen /hpf (Few); Urobilinogen Urine 0.2 mg/dL (<2.0); WBC Urine 0-5 /hpf
[2023-01-30 13:08] LABS: Amphetamine Screen Urine Negative (Negative); Barbiturate Screen Urine Negative (Negative); Benzodiazepines Screen Urine Negative (Negative); Cannabinoid Screen Urine Negative (Negative); Cocaine Screen Urine Negative (Negative); Methadone Screen Urine Negative (Negative); Opiate Screen Urine Positive (Negative); Phencyclidine Screen Urine Negative (Negative)
--- NOTE | 2023-01-30 13:18 | ED.OVERDOSE ---
HPI - Overdose General Chief Complaint: Overdose Stated Complaint: poss OD, confusion with blurred vision Time Seen by Provider: 01/30/23 12:01 History of Present Illness HPI Narrative: Patient's administers his medications, and this morning accidentally gave him 14 tabs of his 10 [place] at 6 this morning. She relates something was off because he seemed very sleepy. When she realized that the pill bottle was empty, she immediately called the EMS, patient reportedly had had some nausea and felt like his vision was blurry, when EMS arrived she was quite drowsy and pupils were pinpoint and they gave him 2 mg of Narcan with immediate patient now at baseline, awake and alert, no complaints Related Data Home Medications Medication Instructions Recorded Confirmed cholecalciferol (vitamin D3) 50 50 mcg PO DAILY 03/05/20 11/25/22 mcg (2,000 unit) capsule acetaminophen 325 mg tablet 325 mg PO Q6H PRN Pain 07/08/21 11/25/22 (Tylenol) Allergies Allergy/AdvReac Type Severity Reaction Status Date / Time No Known Allergies Allergy Verified 01/30/23 12:04 Review of Systems Review of Systems: CONST: No fever. HEENT: No sore throat C/V: No chest pain RESP: No cough GI: Initially had nausea but now no abdominal pain or nausea : No dysuria. M/S: No joint pain. SKIN: No rash. NEURO: Initial drowsiness now gone PSYCH: [No depression] [facility] Past Medical History Medical History Actinic keratosis Anxiety Basal cell carcinoma Essential (primary) hypertension Gastroesophageal reflux disease Mixed hyperlipidemia Stage 4 chronic kidney disease Type 2 diabetes mellitus Surgical History Surgical History History of basal cell carcinoma excision History of laparoscopic cholecystectomy (03/05/00) History of lumbar laminectomy for spinal cord decompression History of removal of pigmented skin lesion Family History Family History Father Family history of pancreatic cancer Sibling Family history of diabetes mellitus in first degree relative Family history of pancreatic cancer Social History Social History Social History: The patient is and lives with his . He has no children. He is retired from [employer]. Surrogate medical decision maker: Naheed Green, spouse. Code status: Full code. Smoking status: Never smoker Second hand tobacco smoke exposure: No Alcohol intake: never Substance use: never Substance use type: does not use Lack of Transportation: No Lack of Food: Never True Current Housing: I Have Housing Concerned About Future Housing: No Difficulty Paying Gas/Electric Bills: No Difficulty Paying for Meds: No Currently Unemployed: No Education: High School Diploma/GED Difficulty w/ Childcare or Family Care: No Living arrangements: with family Occupation/Education: retired Spiritual care concerns: No Exam Narrative: EXAMINATION OF ORGAN SYSTEMS/BODY AREAS: Constitutional: Vital signs per nursing GENERAL:[No acute distress, non-toxic appearing.] HEAD: Normal with no signs of head trauma. EYES: EOMI, conjunctiva normal ENT: Hearing grossly intact LUNGS: Nonlabored breathing. HEART: [Regular rate and rhythm] ABD: [Soft], [nontender to palpation] EXT: Normal range of motion SKIN: [No rashes or lesions.] NEURO: [Alert and oriented x 3. No gross focal sensory or strength deficits.] PSYCH: Normal affect Course Vital Signs Vital signs: Vital Signs Temperature 98.0 F 01/30/23 11:50 Pulse Rate 85 01/30/23 11:50 Respiratory Rate 24 H 01/30/23 11:50 Blood Pressure 187/119 H 01/30/23 11:50 Pulse Oximetry 100 01/30/23 11:50 Oxygen Delivery Room Air 01/30/23 11:50 Temperature 98.0 F 01/30/23 11:50
--- NOTE | 2023-01-30 13:57 | PC.NURSE ---
RN spoke with pt and states that she will be back to get pt but she lives 30 mins away.
== END 2023-01-30 14:44 | disposition home or self-care (01) ==
PROVIDERS: Emergency Provider Emergency Medicine; PCP Family Medicine
DX: T39.1X1A Poisoning by 4-Aminophenol derivatives, accidental (unintentional), initial encounter (principal); E11.22 Type 2 diabetes mellitus with diabetic chronic kidney disease; I12.9 Hypertensive chronic kidney disease with stage 1 through stage 4 chronic kidney disease, or unspecified chronic kidney disease; N18.4 Chronic kidney disease, stage 4 (severe); E78.2 Mixed hyperlipidemia; K21.9 Gastro-esophageal reflux disease without esophagitis; F41.9 Anxiety disorder, unspecified; Z85.828 Personal history of other malignant neoplasm of skin; I44.0 Atrioventricular block, first degree; I45.10 Unspecified right bundle-branch block; Z90.49 Acquired absence of other specified parts of digestive tract; Z79.84 Long term (current) use of oral hypoglycemic drugs; Z79.82 Long term (current) use of aspirin
CPT/HCPCS: 36415; 80053; 80307; 81001; 82140; 83735; 84443; 85025; 85055; 85610; 85730; 93005; 99284

== ENCOUNTER → 2023-04-16 13:31 | Outpatient (CLI) | payer MEDICARE, SELFPAY ==
--- NOTE | ~2023-04-16 | XR_ITS ---
EXAMINATION: [id number]_[id number]_CR DATE: 04/16/2023 14:05 INDICATION: Left knee pain. TECHNIQUE: 2 views of left knee standing were obtained. COMPARISON: None. FINDINGS: There is varus angulation at the knee. No fracture. There is severe osteoarthritis of media l compartment and mild osteoarthritis of lateral and patellofemoral compartments. There is a small kn ee joint effusion. IMPRESSION: 1. Severe left knee osteoarthritis. 2. Small left knee joint effusion. Reviewed, dictated and finalized at location E.
--- NOTE | ~2023-04-16 | XR_ITS ---
EXAMINATION: [id number] DATE: 04/16/2023 14:06 INDICATION: Right knee pain. TECHNIQUE: 2 views of right knee standing were obtained. COMPARISON: None. FINDINGS: There is varus angulation at the knee. No fracture. There is moderate osteoarthritis of med ial compartment and mild osteoarthritis of lateral and patellofemoral compartments. No knee joint eff usion. IMPRESSION: 1. Moderate right knee osteoarthritis. Reviewed, dictated and finalized at location E.
== END ==
PROVIDERS: PCP Nurse Practitioner Family; Visit Provider Nurse Practitioner Family
DX: M17.0 Bilateral primary osteoarthritis of knee (principal); M25.462 Effusion, left knee
CPT/HCPCS: 73560

== ENCOUNTER 2023-05-14 07:00 | Outpatient (NON) | payer MEDICARE, SELFPAY | END 2023-05-14 07:01 | disposition home or self-care (01) | PROVIDERS: PCP Nurse Practitioner Family; Visit Provider Nurse Practitioner | DX: C44.319 Basal cell carcinoma of skin of other parts of face (principal); C44.619 Basal cell carcinoma of skin of left upper limb, including shoulder | CPT/HCPCS: 88305 ==

== ENCOUNTER 2023-08-31 14:24 | Outpatient (NON) | payer MEDICARE, SELFPAY | END 2023-08-31 14:25 | disposition home or self-care (01) | LOC: ANHLAB 14:25 | PROVIDERS: PCP Nurse Practitioner; Visit Provider Nurse Practitioner | DX: C44.319 Basal cell carcinoma of skin of other parts of face (principal) | CPT/HCPCS: 88305; 88331 ==

== ENCOUNTER 2023-11-04 16:02 | Outpatient (CLI) | payer MEDICARE, SELFPAY ==
--- NOTE | ~2023-11-04 | XR_ITS ---
Lumbosacral Spine: AP and lateral views Clinical History: Pain COMPARISON: 10/29/2022 Findings: The normal lordotic curve is maintained. Status post interval vertebroplasty at L1, L3, L4. There is progressive loss of height of T12, with now mild to moderate compression fracture deformity present. Extensive facet joint degenerative changes present throughout the lumbar spine. 8 mm shaka listhesis of L4 over L5 present. 4 mm retrolisthesis of L1 over L2 present. The sacroiliac joints are normally outlined. Impression: Status post interval vertebroplasty of L1, L3, L4. Progressive loss of height of T12, with mild to moderate compression fracture deformity present. Grade 1 listheses and moderate to advanced degenerative spondylosis, as above. Reviewed, dictated and finalized at location . Impression: Status post interval vertebroplasty of L1, L3, L4. Progressive loss of height of T12, with mild to moderate compression fracture d eformity present. Grade 1 listheses and moderate to advanced degenerative spondylosis, as above.
== END 2023-11-04 16:03 ==
LOC: MICIMG 16:04
PROVIDERS: PCP Family Medicine; Visit Provider Nurse Practitioner Family
DX: M43.16 Spondylolisthesis, lumbar region (principal); R29.890 Loss of height; M48.56XA Collapsed vertebra, not elsewhere classified, lumbar region, initial encounter for fracture; Z98.1 Arthrodesis status
CPT/HCPCS: 72100

== ENCOUNTER 2023-11-09 12:33 | Outpatient (CLI) | payer MEDICARE, SELFPAY ==
--- NOTE | ~2023-11-09 | MR_ITS ---
EXAMINATION: MR lumbar spine wo con DATE: 11/09/2023 13:25 INDICATION: Age-related osteoporosis with current pathologic fracture of vertebra. TECHNIQUE: Magnetic resonance imaging (MRI) of the lumbar spine was performed without intravenous con trast. Sequences included sagittal T2-weighted FSE, sagittal T2-weighted FS FSE, sagittal T1-weighted FSE, and axial T2-weighted FSE. COMPARISON: Lumbar spine MRI 11/19/2022, radiographs 11/04/2023 FINDINGS: There is 8 degrees dextrocurvature of lumbar spine. There is 4 mm retrolisthesis of L1 on L 2, 3 mm anterolisthesis of L4 on L5, and 4 mm retrolisthesis of L5 on S1. There is a burst fracture o f T12 with 1/5 loss of height and edema-like marrow signal intensity. There are chronic fractures of L1, L3, and L4 vertebral bodies with changes of vertebroplasties. There is moderately decreased disc height at L1-L2, mildly decreased disc height at L2-L3, and severely decreased disc height at L3-L4 a nd L5-S1. The distal spinal cord signal intensity is normal. The conus medullaris is at L2. The follo wing disc levels are specifically discussed: T11-T12: The disc is bulging. There is severe bilateral facet joint osteoarthritis. There is mild luca ateral neural foraminal stenosis. There is mild central canal stenosis. T12-L1: The disc is bulging. There is severe bilateral facet joint osteoarthritis. There is mild bila teral neural foraminal stenosis. There is mild central canal stenosis. L1-L2: The disc is bulging. There is severe bilateral facet joint osteoarthritis. There is moderate b ilateral neural foraminal stenosis. There is mild central canal stenosis. L2-L3: The disc is bulging and has an annular fissure. There is severe right and moderate left facet joint osteoarthritis. There is moderate bilateral neural foraminal stenosis. There is mild central ca nal stenosis. L3-L4: The disc is bulging and has an annular fissure. There is severe bilateral facet joint osteoart hritis. There is moderate bilateral neural foraminal stenosis. There is severe central canal stenosis . L4-L5: The disc is bulging and has an annular fissure. There is severe bilateral facet joint osteoart hritis. There is moderate bilateral neural foraminal stenosis. There is mild central canal stenosis. L5-S1: The disc is bulging and has an annular fissure. There is moderate bilateral facet joint osteoa rthritis. There is moderate bilateral neural foraminal stenosis. There is mild central canal stenosis . IMPRESSION: 1. Subacute T12 burst fracture. 2. Severe lumbar spondylosis, worsened from 11/19/2022. Reviewed, dictated and finalized at location E.
== END 2023-11-09 12:34 ==
LOC: GOSHIMG 12:34
PROVIDERS: PCP Family Medicine; Visit Provider Nurse Practitioner Family
DX: M80.08XA Age-related osteoporosis with current pathological fracture, vertebra(e), initial encounter for fracture (principal); M47.896 Other spondylosis, lumbar region; S22.081D Stable burst fracture of T11-T12 vertebra, subsequent encounter for fracture with routine healing; X58.XXXD Exposure to other specified factors, subsequent encounter
CPT/HCPCS: 72148